=== PATIENT | female | born 1970 | race Caucasian/White ===

== ENCOUNTER 2019-04-21 16:44 | Emergency (ER) | payer OTHER, SELFPAY ==
--- NOTE | ~2019-04-21 | XR_ITS ---
XR lumbar spine 2-3V 04/21/2019 17:56 Indication: Low back pain Procedure: 3 views lumbar spine Comparison: 11/25/2017 Findings: There is grade 1 spondylolisthesis at L5-S1 secondary to bilateral pars interarticularis de fects. Mild disc narrowing at L4-5 and L5-S1. Mild atherosclerosis of the aorta. No acute fracture or traumatic malalignment. Sacral foramen are symmetric. Impression: 1: Mild lumbar spondylosis with grade 1 spondylolisthesis at L5-S1 secondary to spondylolysis. Reviewed, dictated and finalized at location A. HEALTH CARE SOCIAL WORKER Impression: 1: Mild lumbar spondylosis with grade 1 spondylolisthesis at L5-S1 secondary to spondylolysis.
[2019-04-21 16:48] VITALS: BP 154/76; PULSE 104; RESP 20; TEMP 36.6; O2SAT 100
--- NOTE | 2019-04-21 17:45 | ED.BACK ---
HPI - Back Pain/Injury General Chief Complaint: Back Pain/Injury Stated Complaint: BACK PAIN Time Seen by Provider: 04/21/19 17:17 Source: patient Mode of arrival: ambulatory Limitations: no limitations History of Present Illness HPI Narrative: This is a 48 year old female that presents to the ER for low back pain since this morning. Reports she stood up from her couch quicky and felt a pull in her back. Reports since she has had low back pain. Reports she has been taking anti-inflammatories with little relief. Denies saddle anesthesia, weakness, or bowel/bladder incontinence. Related Data Allergies Allergy/AdvReac Type Severity Reaction Status Date / Time Sulfa (Sulfonamide Allergy Unknown Verified 04/21/19 17:12 Antibiotics) Review of Systems Review of Systems: Narrative: CONSTITUTIONAL: Denies fever MUSCULOSKELETAL: Reports back pain, joint pain, and myalgia. NEUROLOGIC: Denies numbness, or weakness. All systems reviewed & are unremarkable except as noted in HPI and below PMFSH Past Medical History Medical History (Updated 04/21/19 @ 18:22 by Marine Horton PA-C) History of breast cancer Surgical History Surgical History (Updated 04/21/19 @ 17:46 by Marine Horton PA-C) History of lumpectomy Social History Social History (Updated 04/21/19 @ 17:46 by Marine Horton PA-C) Smoking status: Current every day smoker Tobacco type: e-cigarettes Gender identity (if verbalized by the patient): Female Exam Narrative: Exam Narrative: GENERAL: Well-appearing, well-nourished, and in no acute distress. HEAD: Normocephalic, atraumatic. EYES: EOMI. CHEST: Clear to auscultation. No respiratory distress. No wheezes rales or rhonchi HEART: Regular rate and rhythm. No murmur heard. Normal peripheral pulses. BACK: No midline spinal tenderness EXTREMITIES: Normal range of motion. No edema. Strength equal bilateral lower extremities (5/5). Normal patellar reflexes bilaterally SKIN: Warm, dry, no rash. NEURO: No focal deficits. Alert and oriented x3. PSYCH: Normal mood and affect Course Vital Signs Vital signs: Vital Signs Temperature 97.9 F 04/21/19 16:48 Pulse Rate 104 H 04/21/19 16:48 Respiratory Rate 04/21/19 16:48 Blood Pressure 154/76 H 04/21/19 16:48 Pulse Oximetry 100 04/21/19 16:48 Temperature 97.9 F 04/21/19 16:48 Pulse Rate 104 H 04/21/19 16:48 Respiratory Rate 04/21/19 16:48 Blood Pressure 154/76 H 04/21/19 16:48 Pulse Oximetry 100 04/21/19 16:48 MDM - Back Pain/Injury MDM Narrative Medical decision making narrative: Patient presents to the emergency department for low back pain since this morning. She is neurologically intact. No midline spinal tenderness. Lumbar spine x-rays without acute changes. Patient was instructed on care of muscle strain. She is to follow-up with primary care doctor. She is given warnings to return to the ER Imaging Data Radiologist's impression: ITS Impressions Lumbar Spine X-Ray 04/21/19 18:01 Impression: 1: Mild lumbar spondylosis with grade 1 spondylolisthesis at L5-S1 secondary to spondylolysis. Critical Care Time Critical Care Time Critical Care Time: No Discharge Plan Discharge Clinical Impression: Strain of lumbar region Qualifiers: Encounter type: initial encounter Qualified Code(s): S39.012A - Strain of muscle, fascia and tendon of lower back, initial encounter Patient Disposition: Home, Self-Care Condition: Stable Instructions: Muscle Strain (ED) Additional Instructions: Return to the ER if you experience weakness, numbness, bowel/bladder incontinence, or any other symptoms that are concerning to you Rest, use ice/heat, take anti-inflammatories (Aleve, Ibuprofen, Naproxen, etc) or Tylenol as needed for pain as well as muscle relaxer (Diazepam) as needed for pain. Muscle relaxers can make you drowsy, do not drive if you take this Follow up with your primary care doctor
[2019-04-21] MEDS: ACETAMINOPHEN 500 MG TABLET 1000 MG PO (18:12)
== END 2019-04-21 18:50 | disposition home or self-care (01) ==
PROVIDERS: Emergency Provider Emergency Medicine
DX: S39.012A Strain of muscle, fascia and tendon of lower back, initial encounter (principal); Z85.3 Personal history of malignant neoplasm of breast; F17.290 Nicotine dependence, other tobacco product, uncomplicated; M47.816 Spondylosis without myelopathy or radiculopathy, lumbar region; M43.07 Spondylolysis, lumbosacral region; X50.9XXA Other and unspecified overexertion or strenuous movements or postures, initial encounter
CPT/HCPCS: 72100; 96372; 99283; A9270; J3360

== ENCOUNTER 2021-03-29 14:13 | Outpatient (CLI) | payer OTHER, SELFPAY ==
--- NOTE | ~2021-03-29 | US_ITS ---
EXAMINATION: US axilla RT HISTORY: Patient with history of right mastectomy and right axillary lymph node dissection presents w ith palpable lump of the right axilla. TECHNIQUE: Targeted high-resolution right breast ultrasound was performed. FINDINGS: There is a 1.3 x 1.5 x 1.1 cm oval, circumscribed, parallel, hypoechoic mass with posterior acoustic enhancement and no internal vascularity in the right axilla in the area of the palpable abn ormality. IMPRESSION: Indeterminate mass of the right axilla corresponding to the palpable abnormality of concern. Ultrasou nd-guided biopsy is recommended. BI-RADS category 4, suspicious findings. Reviewed, dictated and finalized at location A. ORDER DELIVERY RUNNER IMPRESSION: Indeterminate mass of the right axilla corresponding to the palpable abnormalit y of concern. Ultrasound-guided biopsy is recommended. BI-RADS category 4, suspicious findings.
== END 2021-03-29 14:14 | disposition home or self-care (01) ==
PROVIDERS: PCP Physician Assistant; Visit Provider Radiology Radiation Oncology
DX: N63.31 Unspecified lump in axillary tail of the right breast (principal)
CPT/HCPCS: 76882

== ENCOUNTER 2021-04-11 12:54 | Outpatient (CLI) | payer OTHER, SELFPAY ==
--- NOTE | ~2021-04-11 | US_ITS ---
EXAMINATION: US biopsy lymph node DATE: 04/11/2021 14:28 INDICATION: TECHNIQUE: The procedure including the risks and benefits was discussed with the patient. Risks discu ssed included bleeding and infection. The patient understood the risks and agreed to proceed. The sk in overlying the right axilla was prepped and draped in usual sterile fashion. Anesthetic was admini stered with 1% lidocaine subcutaneously. An 18 gauge core biopsy needle was advanced under continuou s ultrasound observation to the lesion of interest. 3 core biopsy specimens were obtained. An 18-gau ge spinal needle was also passed into the lesion utilizing continuous ultrasound observation and 1 mL of maroon-colored fluid was aspirated. The aspirated fluid along with the core needle biopsy specime ns were both sent to lab for pathology/cytology. The needle was removed and the entry site was clean ed and dressed. Post procedure ultrasound demonstrated no hemorrhage. FINDINGS: Ultrasound images demonstrate a 1.1 x 1 x 1 cm very hypoechoic lesion at the right axilla w hich is without definitive posterior acoustic shadowing, and initially concerning for solid nodule or lymph node. Biopsy yielded couple small fragments of soft tissue but less than anticipated. Followin g the second core biopsy the lesion appears slightly smaller and with flattening of the previously un iformly convex peripheral margins. These findings suggested at this could represent a cystic lesion. Approximately 1 mL of dark maroon-colored fluid was able to be aspirated from the lesion with further decrease in size and development of a more concave margin along one side of the lesion further sugge sting a cystic lesion. IMPRESSION: 1. Successful Ultrasound-guided biopsy and aspiration of a 1.1 cm right axillary lesion with features as detailed above favoring a cystic lesion such as a hematoma/seroma over a lymph node or other shani d nodule. Reviewed, dictated and finalized at location A. D SAW RUNNER IMPRESSION: 1. Successful Ultrasound-guided biopsy and aspiration of a 1.1 cm right axillar y lesion with features as detailed above favoring a cystic lesion such as a hem atoma/seroma over a lymph node or other solid nodule.
== END 2021-04-11 12:55 | disposition home or self-care (01) ==
LOC: ANHIMG 12:59
PROVIDERS: PCP Physician Assistant; Visit Provider Radiology Radiation Oncology
DX: C50.811 Malignant neoplasm of overlapping sites of right female breast (principal); N60.32 Fibrosclerosis of left breast; L72.0 Epidermal cyst
CPT/HCPCS: 38505; 76942; 88104; 88108; 88305

== ENCOUNTER 2021-11-07 09:58 | Emergency (ER) | payer OTHER, SELFPAY ==
--- NOTE | 2021-11-07 10:04 | ED.URI ---
HPI - URI/Sore Throat General Chief Complaint: Upper Respiratory Infection Stated Complaint: SORE THROAT/CONGESTION/BODY ACHES Time Seen by Provider: 11/07/21 10:04 Source: patient and RN notes reviewed History of Present Illness HPI Narrative: Patient is a 51-year-old female who presents the urgent care with her spouse and with complaints of sore throat, congestion and body aches. Patient states that her sore throat started on Thursday and the other 2 became ill yesterday. Patient denies of any fevers, nausea or vomiting. Denies any ill exposures. Patient states she is taking Niki-Oliver which has helped her symptoms some. No other acute complaints. No acute distress noted. Patient aware of the plan of care. Some parts of this dictation were generated by voice recognition software and may contain typographical and/or grammatical inaccuracies. Related Data Home Medications Medication Instructions Recorded Confirmed cholecalciferol (vitamin D3) 1,250 1,250 mcg PO WEEKLY 03/19/21 07/08/21 mcg (50,000 unit) capsule clobetasol 0.05 % topical cream 1 applic topical BID 03/19/21 07/08/21 cyanocobalamin (vitamin B-12) 1,000 mcg PO BID 03/19/21 07/08/21 1,000 mcg capsule docusate sodium 100 mg capsule 100 mg PO BID 03/19/21 07/08/21 levothyroxine 50 mcg tablet 50 mcg PO DAILY 03/19/21 07/08/21 multivit with minerals-iron 18 1 tablet PO DAILY 03/19/21 07/08/21 mg-folic ac 400 mcg-vit K 25 mcg tablet (Adults Multivitamin) oxycodone 5 mg tablet 5 mg PO Q4H PRN Pain 03/19/21 07/08/21 anastrozole 1 mg tablet 1 mg PO DAILY 07/08/21 07/08/21 Allergies Allergy/AdvReac Type Severity Reaction Status Date / Time Sulfa (Sulfonamide Allergy Unknown Verified 07/08/21 09:36 Antibiotics) Review of Systems Review of Systems: CONSTITUTIONAL: Denies fever, chills, or sweats. EYES: Denies visual changes, redness, or discharge. ENT: Reports of postnasal drainage, sore throat CARDIOVASCULAR: Denies chest pain, palpitations, or edema. RESPIRATORY: Denies cough or dyspnea. GASTROINTESTINAL: Denies abdominal pain, nausea, vomiting, or diarrhea. GENITOURINARY: Denies dysuria or hematuria. SKIN: Denies rash or itching. MUSCULOSKELETAL: Denies back pain, joint pain. Reports of some body aches NEUROLOGIC: Denies headache, numbness, or weakness. All other systems reviewed are negative, except as documented in HPI. [facility] Past Medical History Medical History (Updated 11/07/21 @ 10:41 by JHON Quigley) History of breast cancer Surgical History Surgical History (Updated 04/22/21 @ 09:46 by Amanda Ann Mai, MD) History of lumpectomy Social History Social History (Updated 04/21/19 @ 17:46 by Marine Horton PA-C) Smoking packs per day: 1.5 Smoking cigarettes per day: 30.0 Years smoked: 20 Smoking pack-years: 30.00 Smoking status: Former smoker Tobacco type: cigarettes Additional smoking assessment comments: vapping now Gender identity (if verbalized by the patient): Female Spiritual care concerns: No Comments At the time of my signature, I reviewed and agree with the nursing past medical, surgical, social, and family history. There is no relevant family history pertinent to the patient complaint. Exam Narrative: GENERAL: This is a well-nourished, well-developed patient, in no apparent distress. HEAD: normocephalic, atraumatic. EYES: PERRL. Sclera clear/white. Vision is grossly intact. EARS: External ears normal, auditory canals clear and without drainage, TMs normal without perforation. Hearing grossly intact. NOSE: External nose normal with no obvious nasal discharge, nares without redness, clear rhinorrhea. THROAT: Mucous membranes moist, posterior pharynx clear. Moderate clear postnasal drainage without exudate or ulceration NECK: Neck supple, non-tender without lymphadenopathy CARDIOVASCULAR: Regular rate and rhythm without murmurs, gallops, or rubs. RESPIRATORY: Clear to auscultatio
[2021-11-07 10:21] VITALS: BP 141/87; PULSE 102; RESP 16; TEMP 37.3; O2SAT 100
[2021-11-07 20:22] LABS: SARS-CoV-2 RNA PCR Positive
== END 2021-11-07 10:52 | disposition home or self-care (01) ==
PROVIDERS: Emergency Provider Nurse Practitioner Family; PCP Physician Assistant
DX: U07.1 COVID-19 (principal); Z85.3 Personal history of malignant neoplasm of breast; F17.200 Nicotine dependence, unspecified, uncomplicated
CPT/HCPCS: 87081; 87880; 99213; C9803; G0463; U0003; U0005

== ENCOUNTER 2021-11-12 20:16 | Emergency (ER) | payer OTHER, SELFPAY ==
[2021-11-12 20:43] VITALS: BP 176/96; PULSE 86; RESP 18; TEMP 36.4; O2SAT 99
[2021-11-12] MEDS: methocarbamoL 750 MG TABLET PO (22:44)
--- NOTE | 2021-11-12 22:44 | ED.BACK ---
HPI - Back Pain/Injury General Chief Complaint: Back Pain/Injury Stated Complaint: back pain Time Seen by Provider: 11/12/21 21:43 History of Present Illness HPI Narrative: Pt is a 51 y/o female, PMHx of chronic intermittent back pain, presents to ED via POV with low back pain, onset today after emptying her litter box at home. She notes pain has been localized to the low back since onset, non radiating, and not relieved with APAP, Aleve and heat applied today. Pain increases with movement, improves minimally with rest. She denies associated bowel or bladder incontinence, saddle anesthesia, fevers/trauma. She endorses hx of similar pain in the past that was alleviated with muscle relaxants, prompting her visit. Related Data Home Medications Medication Instructions Recorded Confirmed cholecalciferol (vitamin D3) 1,250 1,250 mcg PO WEEKLY 03/19/21 07/08/21 mcg (50,000 unit) capsule clobetasol 0.05 % topical cream 1 applic topical BID 03/19/21 07/08/21 cyanocobalamin (vitamin B-12) 1,000 mcg PO BID 03/19/21 07/08/21 1,000 mcg capsule docusate sodium 100 mg capsule 100 mg PO BID 03/19/21 07/08/21 levothyroxine 50 mcg tablet 50 mcg PO DAILY 03/19/21 07/08/21 multivit with minerals-iron 18 1 tablet PO DAILY 03/19/21 07/08/21 mg-folic ac 400 mcg-vit K 25 mcg tablet (Adults Multivitamin) oxycodone 5 mg tablet 5 mg PO Q4H PRN Pain 03/19/21 07/08/21 anastrozole 1 mg tablet 1 mg PO DAILY 07/08/21 07/08/21 Allergies Allergy/AdvReac Type Severity Reaction Status Date / Time Sulfa (Sulfonamide Allergy Unknown Verified 11/12/21 21:46 Antibiotics) Review of Systems Musculoskeletal: Comments: refer to HPI [facility] Past Medical History Medical History (Updated 11/12/21 @ 22:51 by JHON Minaya) History of breast cancer Surgical History Surgical History (Updated 04/22/21 @ 09:46 by Amanda Ann Mai, MD) History of lumpectomy Social History Social History (Updated 04/21/19 @ 17:46 by Marine Horton PA-C) Smoking packs per day: 1.5 Smoking cigarettes per day: 30.0 Years smoked: 20 Smoking pack-years: 30.00 Smoking status: Former smoker Tobacco type: cigarettes Additional smoking assessment comments: vapping now Gender identity (if verbalized by the patient): Female Spiritual care concerns: No Exam Const: General: healthy appearing, no acute distress and alert Orientation/consciousness: patient oriented x3 Limitations: no limitations HENMT: Head: normal to inspection General nose exam: Normal external nose present Eyes: Conjunctivae: conjunctivae normal Pupils: Equal, round and reactive pupils present EOM: EOMs intact bilaterally Direct Ophthalmoscopy: no photophobia Neck: Neck: normal visual inspection, no lymphadenopathy and no meningeal signs Chest: Chest palpation & inspection: normal inspection of the chest Resp: Effort & Inspection: normal respiratory effort Auscultation: clear to auscultation bilaterally Cardio: Rate: regular rate Rhythm: regular rhythm Back/Spine/Pelvis: Other: Pt is TTP over the SI joints bilaterally. No palpable spasm. NO C T or L spine point tenderness, no step offs Negative SLR bilaterally Normal sensation saddle region Skin: General skin exam: normal color Rashes: no rashes Neuro: General: patient oriented x3, moves all extremities, no meningeal signs, no focal motor deficits and CN's II-XI intact bilaterally Speech: normal speech Gait exam (Neuro): Normal gait present Course Vital Signs Vital signs: Vital Signs Temperature 36.4 C L 11/12/21 20:43 Pulse Rate 86 11/12/21 20:43 Respiratory Rate 18 11/12/21 20:43 Blood Pressure 176/96 H 11/12/21 20:43 Pulse Oximetry 99 11/12/21 20:43 Oxygen Delivery Room Air 11/12/21 20:43 Temperature 36.4 C L 11/12/21 20:43 Pulse Rate 86 11/12/21 20:43 Respiratory Rate 18 11/12/21 20:43 Blood Pressure 176/96 H 11/12/21 20:43 Pulse Oximetry 99 11/12/21 2
[2021-11-12 22:59] VITALS: BP 167/99; PULSE 87; RESP 16; O2SAT 99
== END 2021-11-12 22:58 | disposition home or self-care (01) ==
PROVIDERS: Emergency Provider Nurse Practitioner Family; PCP Physician Assistant
DX: S39.012A Strain of muscle, fascia and tendon of lower back, initial encounter (principal); Z85.3 Personal history of malignant neoplasm of breast; F17.290 Nicotine dependence, other tobacco product, uncomplicated; X50.9XXA Other and unspecified overexertion or strenuous movements or postures, initial encounter
CPT/HCPCS: 99283; A9270

== ENCOUNTER 2022-02-24 08:27 | Outpatient (CLI) | payer OTHER, SELFPAY ==
--- NOTE | ~2022-02-24 | US_ITS ---
US thyroid INDICATION: Thyroid goiter TECHNIQUE: Real-time sonographic images of the thyroid gland were obtained. COMPARISON: No prior studies for comparison. FINDINGS: The right thyroid lobe measures 4.1 x 1.2 x 1.7 cm. The left thyroid lobe measures 4.8 x 1 .3 x 1.8 cm. The thyroid gland is diffusely heterogeneous with multiple ill-defined masses. Dominant mass in the right lobe measures 1.3 x 6.8 x 0.8 cm. This mass is solid, isoechoic, wider than tall, i rregular margins without macrocalcifications, TR 4. Largest dominant mass in the left lobe measures 5 mm and is solid, hypoechoic, wider than tall, smoothly marginated without echogenic foci, TR 4. IMPRESSION: 1. Diffusely heterogeneous thyroid gland with multiple masses, compatible with multinodular goiter. No discrete mass meet sonographic criteria for biopsy. Reviewed, dictated and finalized at location A. OR CLERK
[2022-02-24 09:38] LABS: Alanine Aminotransferase 21 U/L (6-35); Albumin Level 4.5 g/dL (3.5-5.1); Alkaline Phosphatase 106 U/L (38-126); Anion Gap 9 mmol/L (8-16); Aspartate Amino Transferase 26 U/L (14-36); Bilirubin,Total 0.2 mg/dL (0.2-1.3); Blood Urea Nitrogen 20 mg/dL (7-17); Calcium 9.3 mg/dL (8.4-10.2); Carbon Dioxide 27 mmol/L (22-30); Chloride 106 mmol/L (98-107); Estimated Glomerular Filt Rate > 60; Glucose 117 mg/dL (65-110); Sodium 142 mmol/L (137-145)
[2022-02-24 10:42] LABS: Folic Acid 13.5 ng/mL (2.76->20)
[2022-02-27 02:10] LABS: Thyroid Peroxidase Antibodies 936 IU/mL (<9)
[2022-02-28 05:51] LABS: Triiodothyronine T3 Free 2.9 pg/mL (2.3-4.2)
== END 2022-02-24 08:28 | disposition home or self-care (01) ==
LOC: ANHIMG 08:30
PROVIDERS: PCP Physician Assistant; Visit Provider Nurse Practitioner
DX: E03.9 Hypothyroidism, unspecified (principal); E04.2 Nontoxic multinodular goiter
CPT/HCPCS: 36415; 76536; 80053; 82607; 82746; 84439; 84443; 84481; 86376

== ENCOUNTER 2022-05-08 09:55 | Outpatient (CLI) | payer OTHER, SELFPAY ==
[2022-05-08 10:39] LABS: Hemoglobin A1C 5.5 % (<5.7)
[2022-05-08 10:58] LABS: Alanine Aminotransferase 18 U/L (6-35); Albumin Level 4.5 g/dL (3.5-5.1); Alkaline Phosphatase 58 U/L (38-126); Anion Gap 7 mmol/L (8-16); Aspartate Amino Transferase 21 U/L (14-36); Bilirubin,Total 0.4 mg/dL (0.2-1.3); Blood Urea Nitrogen 13 mg/dL (7-17); Calcium 9.3 mg/dL (8.4-10.2); Carbon Dioxide 27 mmol/L (22-30); Chloride 105 mmol/L (98-107); Cholesterol 261 mg/dL (0-200); Estimated Glomerular Filt Rate > 60; Glucose 110 mg/dL (65-110); HDL Direct 49 mg/dL; Potassium 4.3 mmol/L (3.4-5.0); Sodium 139 mmol/L (137-145); Triglycerides 116 mg/dL (<150)
[2022-05-08 11:09] LABS: LDL Cholesterol Direct 136 mg/dL
[2022-05-08 11:14] LABS: Free T4 Free Thyroxine 0.97 ng/mL (0.78-2.19)
[2022-05-08 12:09] LABS: Folic Acid > 20.0 ng/mL (2.76->20)
[2022-05-11 04:02] LABS: Insulin Level Total 3.6 uIU/mL (<=19.6); Thyroid Peroxidase Antibodies 875 IU/mL (<9)
[2022-05-17 04:27] LABS: Triiodothyronine T3 Free 2.9 pg/mL (2.3-4.2)
== END 2022-05-08 09:56 | disposition home or self-care (01) ==
LOC: ANHLAB 09:57
PROVIDERS: PCP Family Medicine Adolescent Medicine; Visit Provider Nurse Practitioner
DX: E03.9 Hypothyroidism, unspecified (principal); R73.01 Impaired fasting glucose
CPT/HCPCS: 36415; 80053; 80061; 82607; 82746; 83036; 83525; 84439; 84443; 84481; 86376

== ENCOUNTER 2022-08-06 09:49 | Outpatient (CLI) | payer OTHER, SELFPAY ==
[2022-08-06 10:43] LABS: Cholesterol 151 mg/dL (0-200); HDL Direct 54 mg/dL; Triglycerides 62 mg/dL (<150)
[2022-08-06 10:54] LABS: LDL Cholesterol Direct 78 mg/dL
== END 2022-08-06 09:50 | disposition home or self-care (01) ==
LOC: ANHLAB 09:50
PROVIDERS: PCP Family Medicine Adolescent Medicine; Visit Provider Family Medicine Adolescent Medicine
DX: E78.00 Pure hypercholesterolemia, unspecified (principal)
CPT/HCPCS: 36415; 80061

== ENCOUNTER 2022-12-29 09:31 | Outpatient (CLI) | payer OTHER, SELFPAY ==
--- NOTE | ~2022-12-29 | XR_ITS ---
EXAMINATION: XR wrist RT 2V DATE: 12/29/2022 09:41 INDICATION: Right wrist pain. TECHNIQUE: 2 views of right wrist were obtained. COMPARISON: None. FINDINGS: Bone alignment is normal. No fracture. There is mild osteoarthritis of triscaphe joint and first carpometacarpal joint. IMPRESSION: 1. Mild polyarticular osteoarthritis. Reviewed, dictated and finalized at location A.
== END 2022-12-29 09:32 | disposition home or self-care (01) ==
LOC: ANHIMG 09:35
PROVIDERS: PCP Family Medicine Adolescent Medicine; Visit Provider Family Medicine Adolescent Medicine
DX: M25.531 Pain in right wrist (principal); M15.9 Polyosteoarthritis, unspecified
CPT/HCPCS: 73100

== ENCOUNTER 2023-07-23 10:09 | Outpatient (CLI) | payer OTHER, SELFPAY ==
[2023-07-23 10:42] LABS: Alanine Aminotransferase 34 U/L (6-35); Albumin Level 4.6 g/dL (3.5-5.1); Alkaline Phosphatase 77 U/L (38-126); Anion Gap 6 mmol/L (4-12); Aspartate Amino Transferase 29 U/L (14-36); Bilirubin,Total 0.4 mg/dL (0.2-1.3); Blood Urea Nitrogen 19 mg/dL (7-17); Calcium 9.5 mg/dL (8.4-10.2); Carbon Dioxide 27 mmol/L (22-30); Chloride 106 mmol/L (98-107); Cholesterol 147 mg/dL (0-200); Estimated Glomerular Filt Rate > 60; Glucose 107 mg/dL (65-110); HDL Direct 59 mg/dL; Potassium 4.4 mmol/L (3.4-5.0); Sodium 139 mmol/L (137-145); Triglycerides 69 mg/dL (<150)
[2023-07-23 10:53] LABS: LDL Cholesterol Direct 76 mg/dL
== END 2023-07-23 10:10 | disposition home or self-care (01) ==
LOC: ANHLAB 10:10
PROVIDERS: PCP Family Medicine Adolescent Medicine; Visit Provider Family Medicine Adolescent Medicine
DX: E03.9 Hypothyroidism, unspecified (principal); R25.2 Cramp and spasm; I10 Essential (primary) hypertension; E78.00 Pure hypercholesterolemia, unspecified
CPT/HCPCS: 36415; 80053; 80061; 83735; 84443

== ENCOUNTER 2023-12-12 17:36 | Emergency (ER) | payer OTHER, SELFPAY ==
--- NOTE | ~2023-12-12 | CT_ITS ---
EXAMINATION: CT lumbar spine wo con DATE: 12/12/2023 21:19 INDICATION: Back pain TECHNIQUE: Computed tomography (CT) of the lumbar spine was performed without intravenous contrast. A utomated exposure control and iterative reconstruction technique were employed. Exam dose: 514.19 mG y-cm total exam DLP. Lumbar spine COMPARISON: 04/21/2019 lumbar spine FINDINGS: There are bilateral L5 pars interarticularis defects with associated grade 1 anterolisthesi s at L5-S1. Otherwise no fracture or bone destruction is detected. Moderate loss of interspace height at L4-5 and L5-S1. No central or lateral recess stenosis is noted. Mild posterior disc bulging at L3-4 and to a greater extent L4-5 and L5-S1. The sacroiliac joints are intact. Incidental finding of 6.4 x 8.5 cm left pelvic cystic mass with thin wall. Attenuation measures avera ge 10 Hounsfield units. There is abdominal aortic and iliac arterial calcification but no aneurysm. Pinpoint nonobstructing lower pole left renal calculus. IMPRESSION: 6.4 x 0.5 cm left pelvic cystic mass, likely of ovarian origin Bilateral L5 pars interarticularis defects with associated grade 1 anterolisthesis at L5-S1 Mild posterior disc bulging at L3-4 and moderately prominent posterior disc bulging at L4-5 and L5-S1 Moderate loss of height of L4-5 and L5-S1 discs Reviewed, dictated and finalized at Location A. Reviewed, dictated and finalized at location A. IMPRESSION: 6.4 x 0.5 cm left pelvic cystic mass, likely of ovarian origin Bilateral L5 pars interarticularis defects with associated grade 1 anterolisthe sis at L5-S1 Mild posterior disc bulging at L3-4 and moderately prominent posterior disc bul ging at L4-5 and L5-S1 Moderate loss of height of L4-5 and L5-S1 discs
[2023-12-12] MEDS: methylPREDNISolone SOD SUCC 125 MG VIAL IM (20:32)
[2023-12-12] MEDS: KETOROLAC (*BKC) 60 MG/2 ML VIAL IM (20:32)
--- NOTE | 2023-12-12 21:12 | ED.BACK ---
HPI - Back Pain/Injury General Chief Complaint: Back Pain/Injury Stated Complaint: back pain Time Seen by Provider: 12/12/23 19:51 History of Present Illness HPI Narrative: Patient is a 53-year-old female who presents to the ER with acute back pain. She reports 12 days ago she injured her back on her right lower side. The injury started healing but today, when patient bent over, the pain resumed and is unmanageable. She has a medical history of breast cancer. Patient has no complaints of chest pain, shortness a breath, urinary symptoms. Related Data Home Medications Medication Instructions Recorded Confirmed multivit with minerals-iron 18 1 tablet PO DAILY 03/19/21 09/04/23 mg-folic ac 400 mcg-vit K 25 mcg tablet (Adults Multivitamin) anastrozole 1 mg tablet 1 mg PO DAILY 07/08/21 09/04/23 goserelin 3.6 mg subcutaneous 3.6 mg subcut MONTHLY 01/07/22 09/04/23 implant zoledronic acid 4 mg intravenous mg IV .every 6 months 07/30/22 07/22/23 solution vitamin D3 125 mcg (5,000 1 tablet PO DAILY 07/22/23 09/04/23 unit)-folic acid 1 mg tablet Allergies Allergy/AdvReac Type Severity Reaction Status Date / Time Sulfa (Sulfonamide Allergy Unknown Verified 09/04/23 10:21 Antibiotics) Review of Systems Review of Systems: All systems reviewed & are unremarkable except as noted in HPI and below PMFSH Past Medical History Medical History History of breast cancer Surgical History Surgical History History of lumpectomy (2012) left History of right mastectomy (01/2021) History of tubal ligation (2010) Family History Family History Father Lymphoma Mother Hodgkins lymphoma Other Pancreatic cancer Social History Social History Smoking packs per day: 1.5 Smoking cigarettes per day: 30.0 Years smoked: 20 Smoking pack-years: 30.00 Smoking status: Former smoker Tobacco type: cigarettes Additional smoking assessment comments: vapping now Gender identity (if verbalized by the patient): Female Spiritual care concerns: No Exam Narrative: GENERAL: Well appearing, well-nourished, non-toxic, in no acute distress. NECK: Supple. No adenopathy, no masses. RESPIRATORY: Airway patent, respirations nonlabored. Clear to auscultation bilaterally, no rales, rhonchi, wheezing. CARDIOVASCULAR: Regular rate and rhythm without murmurs, rubs, or gallops. Peripheral pulses 2+ and equal bilaterally. ABDOMINAL: Soft, nontender, nondistended, no hepatosplenomegaly. Normoactive BS. MUSCULOSKELETAL: Moves all extremities. Strength/ROM intact without gross deformities. SKIN: Warm, dry, normal color. No rashes. NEURO: A&O X3. Speech clear. Cranial nerves II-XII grossly intact. No ataxic movements. MDM - Back Pain/Injury MDM Narrative Medical decision making narrative: Patient is a 53-year-old female who presents to the ER with acute back pain. She reports 12 days ago she injured her back on her right lower side. The injury started healing but today, when patient bent over, the pain resumed and is unmanageable. She has a medical history of breast cancer. Patient has no complaints of chest pain, shortness a breath, urinary symptoms. Pt's physical examination is unremarkable. Her lumbar CT scan showed There are bilateral L5 pars interarticularis defects with associated grade 1 anterolisthesis at L5-S1. Otherwise no fracture or bone destruction is detected. Moderate loss of interspace height at L4-5 and L5-S1. No central or lateral recess stenosis is noted. Mild posterior disc bulging at L3-4 and to a greater extent L4-5 and L5-S1. The sacroiliac joints are intact. Incidental finding of 6.4 x 8.5 cm left pelvic cystic mass with thin wall. Attenuation measures a
[2023-12-12 23:26] VITALS: BP 138/75; PULSE 78; RESP 16; TEMP 36.9; O2SAT 98
== END 2023-12-12 23:27 | disposition home or self-care (01) ==
PROVIDERS: Emergency Provider Registered Nurse; PCP Family Medicine Adolescent Medicine
DX: M51.36 Other intervertebral disc degeneration, lumbar region (principal); F17.290 Nicotine dependence, other tobacco product, uncomplicated; Z85.3 Personal history of malignant neoplasm of breast; Z90.11 Acquired absence of right breast and nipple; N94.89 Other specified conditions associated with female genital organs and menstrual cycle
CPT/HCPCS: 72131; 96372; 99284; J1885; J2919

== ENCOUNTER 2024-08-02 10:19 | Outpatient (CLI) | payer OTHER, SELFPAY ==
--- OUTSIDE RECORDS SUMMARY | 2024-08-02 10:37 | XMS_ITS | Encounter Summary ---
Author Organization [facility] Address [address] [place] [address] Phone Care Team Providers Care Clinical Data Management Director Name Role Phone Ottoniel Hernandez MD Unavailable [phone] Fariha Shin MD Unavailable + [phone] Manuel Nevarez MD Primary Care Prov ider Edith Langley MD PhD Unavailable [phone] Encounter Details Date Type Department Care Team (Late st Contact Info) Description 04/01/2024 Telephone [facility] Floor [address] [place] [address] Cathleen Bolaños, A Social History Tobacco Use Types Packs/Day Years Used Date Smoking Tobacco: Former Cigarettes Q uit: 2011 Smokeless Tobacco: Never AUDIT-C Answer Date Recorded Q1: How often do you have a drink containing alc ohol? Monthly or less 01/22/2021 Q2: How many drinks containi ng alcohol do you have on a typical day when you are drinking? 1 or 2 01/22/2021 Q3: How often do you have si x or more drinks on one occasion? Never 01/22/2021 Hunger Vital Sign Answer Date Recorded Within the past 12 months, y ou worried that your food would run out before you got the money to buy more. Patient declined Within the past 12 months, t he food you bought just didn't last and you didn't have money to get more. 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 Gender Identity Not on file Sexual Orientation Not on file documented as of this encounter Plan of Treatment Not on file documented as of this encounter Visit Diagnoses Not on filedocumented in this encounter Care Teams Clinical Data Management Director Relationship Specialty Start Date End Date Manuel Nevarez MD [address] [place] [address] PCP - General Family Medicine 03/28/22 Ottoniel Hernandez MD Referring Physician Obstetrics and Gynecology 11/07/20 Fariha Shin MD [address] [facility] [address] [place] [address] Medical Oncologist/Conservation Technician Medical Oncology 07/29/21 Edith Langley MD PhD [address] [facility] [address] DIV [place] [address] Consulting Physician Medical Oncology 02/24/24 documented as of this encounter
--- OUTSIDE RECORDS SUMMARY | 2024-08-02 10:37 | XMS_ITS | Encounter Summary ---
Author Organization [facility] Address [address] [place] [address] Phone Care Team Providers Care Lead Software Developer Name Role Phone Ottoniel Hernandez MD Unavailable Fariha Shin MD Unavailable [phone]- [phone] Manuel Nevarez MD Primary Care Prov ider Edith Langley MD PhD Unavailable [phone] Encounter Details Date Type Department Care Team (Latest Contact Info) Description 01/09/2024 Orders Only [facility] Scanning, Provider Social History Tobacco Use Types Packs/Day Years Used Date Smoking Tobacco: Former Cigarettes Q uit: 2010 Smokeless Tobacco: Never AUDIT-C Answer Date Recorded [...] you got the money to buy more. Never true 11/27/19 24 Within the past 12 months, t he food you bought just didn't last and you didn't have money to get more. 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 Gender Identity Not on file Sexual Orientation Not on file documented as of this encounter Plan of Treatment Not on file documented as of this encounter Procedures Procedure Name Priority Date/Time Associated Diagnosis Comments SCAN - LABS 01/09/2024 documented in this encounter Results * SCAN - LABS (01/09/2024) us Provider Scanning Final Result documented in this encounter Visit Diagnoses Not on filedocumented in this encounter Care Teams Lead Software Developer Relationship Specialty Start Date End Date Manuel Nevarez MD [address] [place] [address] PCP - General Family Medicine 03/28/22 Ottoniel Hernandez MD Referring Physician Obstetrics and Gynecology 11/07/20 Fariha Shin MD [address] [facility] [address] [place] [address] Medical Oncologist/Calender Machine Operator Medical Oncology 07/29/21 Edith Langley MD PhD [address] [facility] [address] DIV IM [place] [address] Consulting Physician Medical Oncology 02/24/24 documented as of this encounter
--- OUTSIDE RECORDS SUMMARY | 2024-08-02 10:37 | XMS_ITS | Clinical Summary ---
Author Organization [facility] Address [facility] [place] [address] Care Team Providers Care Rounding Machine Operator Name Role Phone Ottoniel Hernandez MD Unavailable [phone] Fariha Shin MD Unavailable [phone] Manuel Nevarez MD Primary Care Prov ider Edith Langley MD PhD Unavailable Allergies Active Allergy Reactions Criticality Noted Date Comments Sulfa (Sulfonamide Antibiotics) Nausea & Vomiting,Vomiting Low 02/18/2021 Sulfanilamide Nausea & Vomiting Low Medications multivitamin tabletIndications: Vitamin Deficiency Prevention Take 1 tablet by mouth with lunch 11/10/19 21 Active clobetasoL (TEMOVATE) 0.05 % creamIndications:P laque Psoriasis Apply 1 application topically 2 (two) times a day Active goserelin acetate (ZOLADEX SUBQ)Indications:b reast cancer Inject under the skin every 30 (thirty) days Last dose was 04/05/2024, Patient will no longer take this after 05/17 surgery Active losartan (COZAAR) 100 mg tabletIndications: hypertension Take 1 tablet (100 mg total) by mouth every morning 03/05/20 22 Active atorvastatin (LIPITOR) 20 mg tabletIndications: hyperlipidemia Take 1 tablet (20 mg total) by mouth daily with dinner 05/08/19 23 Active levothyroxine (SYNTHROID) 75 mcg tabletIndications: hypothyroidism Take 1 tablet (75 mcg total) by mouth site engineer before breakfast 04/16/19 25 Active zoledronic acid (ZOMETA) 4 mg/5 mL injectionIndicatio ns: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,R/t Breast cancer treatment Infuse into a venous catheter every 6 (six) months Next Dose July 15, 2024 Active cholecalciferol (VITAMIN D-3) 5,000 unit tabletIndications: Prevention of Vitamin D Deficiency,bone loss prevention Take 1 tablet (5,000 Units total) by mouth every evening Active senna (SENOKOT) 8.6 mg tabletIndications: constipation Take 1 tablet by mouth daily as needed for constipation Active ibuprofen (ADVIL,MOTRIN) 600 mg tablet Take 1 tablet (600 mg total) by mouth every 6 (six) hours as needed for pain 60 tablet 05/17/19 25 Active acetaminophen (TYLENOL) 500 mg tablet Take 2 tablets (1,000 mg total) by mouth every 6 (six) hours as needed for pain 60 tablet 05/17/19 25 Active ondansetron ODT (ZOFRAN-ODT) 4 mg disintegrating tablet Take 1 tablet (4 mg total) by mouth every 8 (eight) hours as needed for nausea or vomiting 10 tablet 05/17/19 25 Active polyethylene glycol (MIRALAX) 17 gram/dose bulk powder Take 17 g by mouth daily 510 g 05/17/19 25 Active oxyCODONE (ROXICODONE) 5 mg immediate release tabletIndications: Pain Take 1 tablet (5 mg total) by mouth every 4 (four) hours as needed for pain 15 tablet 05/17/19 25 Active anastrozole (ARIMIDEX) 1 mg tabletIndications: Early Breast Cancer HR Positive and Postmenopausal Take 1 tablet (1 mg total) by mouth every morning 90 tablet 3 06/01/19 [address] (VOLTAREN) 75 mg EC tablet 06/01/19 25 Active Active Problems Problem Noted Date Diagnosed Date skilled nursing (current) use of aromatase inhibitors 05/24/2024 RAD51C gene mutation positive 02/17/2024 Overview (04/13/2024): - Pelvic US 03/18: ORADS 3 lesion, left-sided, 10 cm in larges dimension. EMT 8.8 mm - CA-125 normal 02/16 Plan: - Discussed imaging findings with normal CA125 suggest mass is benign, however, final diagnosis will be pending pathology - Discussed recommendation for risk-reducing BSO given 6.7% lifetime risk of ovarian cancer, with added benefit of hormone reduction given breast cancer history. Anticipate adhesions given BTL history. - No indication for hysterectomy or endometrial sampling given no PMB and EMT <11mm. No increased risk of endometrial cancer with RAD51 mutation - Consented for A, [facility] B[facility]. Blood consent signed. For case scheduling. History of bilateral breast cancer 07/29/2021 Malignant neoplasm of overla pping sites of right breast in female, estrogen receptor positive 02/16/2021 Cancer Staging:Pathologic stage from 02/16/2021:Stage IB(pT3, pN1mi, cM0, G2, ER+, CO+, HER2-) - Signed by Jasmin Hollingsworth MD PhD on 02/16/2021 Abnormal mammography 11/22/2020 Malignant neoplasm of overla pping sites of left breast in female, estrogen receptor positive 12/27/2012 Cancer Staging:Pathologic: Unsigned Encounters Date Type Department Care Team Description 07/15/2024 1:30 PM CDT Infusion [facility] - Infusion [address] [facility] [address] [place] [address] Malignant neoplasm of overlapping sites of right breast in female, estrogen receptor positive (HCC) (Primary Dx); Malignant neoplasm of overlapping sites of left breast in female, estrogen receptor positive (HCC) 07/15/2024 12:00 PM CDT Lab [facility] - Lab Collection [facility] [address] [place] [address] Malignant neoplasm of overlapping sites of left breast in female, estrogen receptor positive (HCC) 07/15/2024 Orders Only [facility] [address] [place] [address] Floor 8 [place] [address] Gricel Domingo, RN Malignant neoplasm of overlapping sites of right breast in female, estrogen receptor positive (HCC) (Primary Dx); skilled nursing (current) use of aromatase inhibitors 06/03/2024 8:15 AM CDT Office Visit [facility] [address] [place] [address] 8 [place] [address] Fariha Shin MD Malignant neoplasm of overlapping sites of left breast in female, estrogen receptor positive (HCC) (Primary Dx); skilled nursing (current) use of aromatase inhibitors 06/03/2024 Orders Only [facility] [address] [facility] [address] [place] [address] Gricel Domingo, RN 05/24/2024 Orders Only [facility] [address] [facility] Floor [address] [place] [address] Gricel Domingo RN 05/23/2024 Results Follow-Up [facility] Obstetrics and Gynecology [address] [facility] 13th [place] [address] [place] [address] Ottoniel Henrandez MD PhD 05/17/2024 10:14 AM UNIFORM ROOM ATTENDANT Anesthesia Event [facility] Operating Room [address] [place] [address] Yosef Bojorquez MD Montgomery, Andrea J., NP 05/17/2024 10:05 AM UNIFORM ROOM ATTENDANT - 05/17/2024 11:55 AM UNIFORM ROOM ATTENDANT Surgery [facility] Operating Room [address] [place] [address] Deb Rodriguez MD LAPAROSCOPIC SALPINGO-OOPHORECTOM Y 05/17/2024 7:23 AM UNIFORM ROOM ATTENDANT - 05/17/2024 2:24 PM UNIFORM ROOM ATTENDANT Hospital Encounter [facility] Operating Room [address] [place] [address] Deb Rodriguez MD RAD51C gene mutation positive Discharge Disposition: Discharge to home or self care 05/16/2024 Telephone [facility] Obstetrics and Gynecology [address] [facility] [address]th [place] [address] [place] [address] Varela, Niru Surgery Confirmation from Last 3 Months Immunizations Immunization Administration Dates Next Due Influenza, Quadrivalent, Split, Intramuscular Influenza, Trivalent, IM (MDV) 12/30/2020 Influenza, Unspecified 09/07/2013 Moderna SARS-CoV-2 Monovalent Vaccination (12+ Y RS) 12/30/2020 Pfizer SARS-CoV-2 Monovalent Vaccination (12+ Yrs) PURPLE 12/30/2001 Pfizer Sars-Cov-2 Bivalent Vaccination (12+ YRS) 02/21/2022 Surgical History Surgery Date Site/Laterality Comments TUBAL LIGATION 03/23/2010 - 03/22/2011 Bilateral tubal ligation BREAST LUMPECTOMY 03/23/2012 - 03/22/2013 Left BREAST BIOPSY 11/27/2020 Right CATARACT EXTRACTION, BILATERAL 03/23/2016 - 03/22/2017 Bilateral MASTECTOMY 01/22/2021 Right Medical History Medical History Date Comments Hx Other Medical Hypoglycemia Thyroid condition Arthritis PONV (postoperative nausea and vomiting) Breast cancer (HCC) Family History Medical History Relation Name Comments anaplastic t cell lymphoma Father Lymphoma Mother Prostate cancer Other 1 paternal uncle Family his tory of Cancer -; Diabetes type II Other 2 Family hist ory of Diabetes -Type 2; Hypertension Other 3 Family history of Hypertension; Seizures Other 4 Family history of Seizure disorder; Anesthesia problems Neg Hx Relation Name Status Comments Father Mother Other 1 paternal uncle Other 2 Other 3 Other 4 Social History Tobacco Use Types Packs/Day Years Used Date Smoking Tobacco: Former Cigarettes 2010 Passive Smoke Exposure: Past Smokeless Tobacco: Never Tobacco Cessation:Counseling Given: Not Answered AUDIT-C Answer Date Recorded Q1: How often do you have a drink containing alcohol? Never 04/22/2024 Q2: How many drinks containi ng alcohol do you have on a typical day when you are drinking? Patient does not drink Q3: How often do you have si x or more drinks on one occasion? Never 04/22/2024 Hunger Vital Sign Answer Date Recorded Within the past 12 months, y ou worried that your food would run out before you got the money to buy more. Patient declined Within the past 12 months, t he food you bought just didn't last and you didn't have money to get more. Patient declined Personal Safety Answer Date Recorded Have you ever been in or are you currently in a harmful physical or emotional relationship or is someone making you feel afraid or unsafe? Denies 05/17/2024 Comments No Sex and Gender Information Value Date Recorded Sex Assigned at Not on file Legal Sex Female 2:25 AM UNIFORM ROOM ATTENDANT Gender Identity Not on file Sexual Orientation Not on file Obstetrics History Last Filed Vital Signs Vital Sign Reading Time Taken Comments Blood Pressure 123/76 07/15/2024 12:14 PM CDT Pulse 73 07/15/2024 12:14 PM CDT Temperature 36.8 C (98.2 F) 07/15/2024 12:14 PM CDT Respiratory Rate 16 07/15/2024 12:14 PM CDT Oxygen Saturation 98% 07/15/2024 12:14 PM CDT Inhaled Oxygen Concentration - - Weight 52 kg (114 lb 10.2 oz) 07/15/2024 12:14 P M CDT Height 162.6 cm (5' 4 ) 04/22/2024 3:50 PM UNIFORM ROOM ATTENDANT Body Mass Index 19.68 04/22/2024 3:50 PM UNIFORM ROOM ATTENDANT Plan of Treatment Health Maintenance Due Date Last Done Comments Colon Cancer Screening-Colonoscopy 1970 Depression Screening 1970 Hepatitis C Screening 1970 DTaP/Tdap/Td Vaccine (1 - Tdap) 09/26/1983 Hepatitis B Screening 1990 Pneumococcal vaccine <65 (1 of 2 - PCV) 09/26/1991 Zoster Vaccine (1 of 2) 09/26/1991 Lung Cancer Screening 2022 Cervical Cancer Screening 10/14/2023 10/13/2022, Covid-19 Vaccine (2023-2 5 season) 2023 02/21/2022, 12/30/2020, 06/07/2020, Additional history exists Influenza Vaccine (Season Ended) 2024 12/30/2020, 12/30/2020, 09/07/2013 Regular Well Visit/Exam 18-64 11/26/2024 11/27/2023, 10/13/2022 Breast Cancer Screening-Mammogram 12/13/2024 12/14/2023, 12/08/2022, 12/02/2021, Additional history exists Procedures Procedure Name Priority Date/Time Associated Diagnosis Comments EGFR Routine 07/15/2024 11:56 AM CDT Malignant neoplasm of overlapping sites of left breast in female, estrogen receptor positive (HCC) BASIC METABOLIC PANEL Routine 07/15/2024 11:56 AM CDT Malignant neoplasm of overlapping sites of left breast in female, estrogen receptor positive (HCC) PHOSPHORUS Routine 07/15/2024 11:56 AM CDT Malignant neoplasm of overlapping sites of left breast in female, estrogen receptor positive (HCC) VITAMIN D 25 HYDROXY Routine 07/15/2024 11:56 AM CDT Malignant neoplasm of overlapping sites of left breast in female, estrogen receptor positive (HCC) SURGICAL PATHOLOGY Routine 05/17/2024 11 :13 AM UNIFORM ROOM ATTENDANT RAD51C gene mutation positive CYTOLOGY Routine 05/17/2024 10:50 AM UNIFORM ROOM ATTENDANT RAD51C gene mutation positive CO AN PROCEDURE PLACEHOLDER Routine 05/17/2024 10:40 AM UNIFORM ROOM ATTENDANT CO AN ELECTIVE ENDOTRACHEAL AIRWAY Routine 05/17/2024 10:40 AM UNIFORM ROOM ATTENDANT LAPAROSCOPIC SALPINGO-OOPHORECTO MY 05/17/2024 10:18 AM UNIFORM ROOM ATTENDANT RAD51C gene mutation positive POCT HCG, URINE Routine 05/17/2024 8:25 AM UNIFORM ROOM ATTENDANT SCREENING MAMMOGRAM LEFT W JORGE UNILATERAL ONLY Schedule Routine, Read Routine (OP Routine) 12/14/2023 9:36 AM CDT Malignant neoplasm of overlapping sites of left breast in female, estrogen receptor positive (HCC) Malignant neoplasm of overlapping sites of right breast in female, estrogen receptor positive (HCC) History of bilateral breast cancer History of partial mastectomy of left breast History of mastectomy, right Malignant neoplasm of upper-outer quadrant of right breast in female, estrogen receptor positive (HCC) Malignant neoplasm of right breast in female, estrogen receptor positive, unspecified site of breast (HCC) PAP AND HIGH RISK HPV, REFLEX TO GENOTYPING Routine 10/13/2022 11:15 AM CDT Healthcare maintenance from Last 3 Months or Most Recently Relevant to Health Maintenance Results * eGFR (07/15/2024 11:56 AM CDT) eGFR >90 >=60 mL/min/1. 73 m2 Comment: Interpretive Data Reference Interval Normal >/= 90 mL/min/1.73m2 Mildly decreased* 60 - 89 mL/min/1.73m2 Mildly to moderately decreased 45 - 59 mL/min/1.73m2 Moderately to severely decreased 30 - 44 mL/min/1.73m2 Severely decreased 15 - 29 mL/min/1.73m2 Kidney Failure < 15 mL/min/1.73m2 *Relative to young adult level Estimated glomerular filtration rate is determined by the 2020 CKD-EPI equation recommended by the National Kidney Foundation (A Unifying Approach to GFR Estimation: Recommendations of the NKF-ASK Task Force on Reassessing the Inclusion of Race in Diagnosing Kidney Disease, JASN 2020). The CKD-EPI equation should not be used for patients with unstable renal function and has not been validated in children and those over 70. Current interpretive data was last reviewed 2021. Blood 07/15/2024 11:5 6 AM CDT 07/15/2024 12:06 PM CDT us Fariha Shin MD LAB BLOOD ORDERABLES Final Result [facility] [place] [place] [address] * Vitamin D 25 hydroxy (07/15/2024 11:56 AM CDT) Vitamin D 25-OH 57 30 - 80 ng/mL Blood 07/15/2024 11:5 6 AM CDT 07/15/2024 12:06 PM CDT Fariha Shin MD LAB BLOOD ORDERABLES Final Result [facility] [place] [place] [address] * Phosphorus (07/15/2024 11:56 AM CDT) Phosphorus, pl 3.2 2.3 - 4.5 mg/dL Blood 07/15/2024 11:5 6 AM CDT 07/15/2024 12:06 PM CDT Fariha Shin MD LAB BLOOD ORDERABLES Final Result Performing Organization Address City/[facility]/ZIP Co de Phone Number [facility] Department [place] [address] * Basic metabolic panel (07/15/2024 11:56 AM CDT) Pathologist [facility] Sodium 142 135 - 145 mmol/L Potassium, pl 4.6 3.3 - 4.9 mmol/L [facility] Chloride 108 97 - 110 mmol/L [facility] CO2 27 22 - 32 mmol/L [facility] Anion gap 7 2 - 15 mmol/L [facility] BUN 17 6 - 25 mg/dL [facility] Creatinine 0.67 0.60 - 1.10 mg/dL [facility] Glucose 101 70 - 199 mg/dL [facility] Comment: Interpretive Data Fasting glucose >/= 126 mg/dl is diagnostic for diabetes. Fasting is defined as no caloric intake for at least 8 hours. Fasting glucose between 100 mg/dl to 125 mg/dl is diagnostic of prediabetes. In a patient with classic symptoms of hyperglycemia or hyperglycemic crisis, a random glucose >/= 200 mg/dl is diagnostic for diabetes. In the absence of unequivocal hyperglycemia, results should be confirmed by repeat testing. The classification and Diagnosis of Diabetes Diabetes Care 2021; 46: S19-S40. Current interpretive data was last revised 2022. Calcium 9.3 8.5 - 10.3 mg/dL [facility] Blood 07/15/2024 11:5 6 AM CDT 07/15/2024 12:06 PM CDT Fariha Shin MD LAB BLOOD ORDERABLES Final Result Performing Organization Address [facility] Co de Phone Number [facility] Department [place] [address] * Surgical pathology (05/17/2024 11:13 AM UNIFORM ROOM ATTENDANT) Tissue specimen (specimen) (Ovary(ies) with or without tube, non-tumor) 05/17/2024 11:13 AM UNIFORM ROOM ATTENDANT Tissue specimen (specimen) (Ovary(ies) with or without tube, tumor) 05/17/2024 11:17 AM UNIFORM ROOM ATTENDANT Narrative PATHOLOGY [facility] - 05/23/2024 12:37 PM UNIFORM ROOM ATTENDANT EPIC results best viewed via link to PDF [facility] [place] [address] Note to Patients: This report may contain a detailed description of human tissue sent by a health care provider to the laboratory for pathologic evaluation. The content of this report is essential for diagnosis and may provide important critical findings. This information may be unfamiliar to patients to review without a medical professional present. It is advised that the patient review this report in the presence of a health care provider who can answer questions and explain the details. SURGICAL PATHOLOGY REPORT FINAL Patient Name: DIVINA MELTON Gender: F : 1970 (Age: 53) Address: [address] [place], [place] [address] Hospital #: [id number] Taken:05/17/2024 Received:05/17/2024 Reported: 05/23/2024 Patient Type: [facility] Service: Surgery Location: [facility] OR POD1 Physician(s): Lillian Wells Jr., M.D. Diagnosis: A. Ovary and fallopian tube remnant , right, salpingo-oophorectomy - Ovary with no histopathologic abnormality - Benign mesothelial cyst (see comment) - Entire specimen submitted for microscopic examination B. Left ovary , oophorectomy - Serous cystadenoma - Entire specimen submitted for microscopic examination ud/05/23/2024 07:22 By this signature, I attest that the above diagnosis is based upon my personal examination of the slides(and/or other material indicated in the diagnosis). Sandro Rordiguez M.D., Ph.D. Report Electronically Reviewed and Signed Out By Sandro Rodriguez M.D., Ph.D. 05/23/2024 12:37:25 Microscopic Description and Comment: Microscopic examination substantiates the above cited diagnosis. Part A: The sections show an unremarkable ovary and a small benign mesothelial cyst. We note that a fallopian tube remnant was not identified grossly or microscopically (the entire specimen was submitted for microscopic examination). Kamryn Hartmann M.D. History: The patient is a 53-year-old woman with ER positive breast cancer and RAD51C germline mutation. Operative procedure: Laparoscopic bilateral salpingo-oophorectomy. Specimen(s) Received: A: Right ovary and tubal remnant B: Left ovary Gross Description: Received in two formalin jars, each labeled with the patient's identifiers. A. Labeled right ovary and tubal remnant is a 3.0 g, 2.3 x 1.4 x 1.2 cm intact, carr-pink, nodular ovary with a 1.3 x 1.2 cm unilocular, thin-walled serous cyst. Sectioning reveals rubbery, mottled ovarian parenchyma with no focal lesions. A fallopian tube remnant is not grossly identified. Entirely submitted. Labeled A1 to A3. Jar 0. B. Labeled left ovary is a 8.1 x 6.0 x 1.4 cm collapsed unilocular, thin-walled cyst. The internal lining is carr-white and mottled and is remarkable for a 2.2 x 1.1 cm additional unilocular, smooth-lined cyst within the wall. There are also two areas of carr-white, raised excrescences. Entirely submitted. Labeled B1-excrescences; B2 to B9-cyst wall rolls. Jar 0. lxd/05/18/2024 14:33 PA(s): JUD Monroe PA ([facility])CM By this signature, I attest that the above diagnosis is based upon my personal examination of the slides(and/or other material). Addenda/Procedures The performance characteristics of some immunohistochemical stains, fluorescence in-situ hybridization tests and immunophenotyping by flow cytometry cited in this report (if any) were determined by the Surgical Pathology and Flow Cytometry Departments at [facility] as part of an ongoing quality control representative program and in compliance with federally mandated regulations drawn from the Clinical Laboratory Improvement Act of 1988 (CLIA '88). Some of these tests rely on the use of analyte specific reagents and are subject to specific labeling requirements by the US Food and Drug Administration. Such diagnostic tests may only be performed in a facility that is certified by the Department of Health and Human Services as a high complexity laboratory under CLIA '88. The FDA has determined that such clearance or approval is not necessary. This test is used for clinical purposes. It should not be regarded as investigational or for research. Nevertheless, federal rules concerning the medical use of analyte specific reagents require that the following disclaimer be attached to the report: This test was developed and its performance characteristics determined by the Surgical Pathology and Flow Cytometry Departments of [facility]. It has not been cleared or approved by the U. S. Food and Drug Administration. IMAGES AND SCANNED DOCUMENTS, IF INCLUDED, ONLY VIEWABLE IN PDF VERSION OF REPORT Deb Rodriguez MD LAB PATHOLOGY ORDERABLE S Final Result PATHOLOGY [facility] [address] [place], [place] [phone] * Cytology (05/17/2024 10:50 AM UNIFORM ROOM ATTENDANT) Fluid (Pelvic Washing (Cytology)) 05/17/2024 10:50 AM UNIFORM ROOM ATTENDANT Narrative PATHOLOGY [facility] - 05/18/2024 2:50 PM UNIFORM ROOM ATTENDANT EPIC results best viewed via link to PDF [facility] [place] [address] Note to Patients: This report may contain a detailed description of human tissue sent by a health care provider to the laboratory for pathologic evaluation. The content of this report is essential for diagnosis and may provide important critical findings. This information may be unfamiliar to patients to review without a medical professional present. It is advised that the patient review this report in the presence of a health care provider who can answer questions and explain the details. CYTOPATHOLOGY REPORT FINAL Patient Name: DIVINA MELTON Gender: F : 1970 (Age: 53) Address: [address] [place] [address] [place] [address] Hospital #: [id number] Taken:05/17/2024 Received:05/17/2024 Reported: 05/18/2024 Patient Type: [facility] Service: Gynecology Location: [facility] OR POD1 Physician(s): Lillian Wells Jr., M.D. Katherine Clifton, M.D. FINAL DIAGNOSIS A. Pelvic washing: - Negative for malignancy udch/05/18/2024 11:37 By this signature, I attest that the above diagnosis is based upon my personal examination of the slides(and/or other material indicated in the diagnosis). Allan Banda M.D. Report Electronically Reviewed and Signed Out By Allan Banda M.D. 05/18/2024 14:50:41 Danyel Betancourt, CT(ASCP), [facility] Gross Description A. Pelvic washin ml clear fluid - 1 Pap stained ThinPrep. 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 Some of these tests rely on the use of analyte specific reagents and are subject to specific labeling requirements by the US Food and Drug Administration. Such diagnostic tests may only be performed in a facility that is certified by the Department of Health and Human Services as a high complexity laboratory under CLIA '88. The FDA has determined that such clearance or approval is not necessary. This test is used for clinical purposes. It should not be regarded as investigational or for research. Nevertheless, federal rules concerning the medical use of analyte specific reagents require that the following disclaimer be attached to the report: This test was developed and its performance characteristics determined by the Surgical Pathology and Flow Cytometry Departments of [facility]. It has not been cleared or approved by the U. S. Food and Drug Administration. Result [facility] Deb Rodriguez MD LAB CYTOLOGY ORDERABLES Final Result PATHOLOGY [facility] 3rd Floor [place], [place] [phone] * CO AN ELECTIVE ENDOTRACHEAL AIRWAY, CO AN PROCEDURE PLACEHOLDER (05/17/2024 10:40 AM UNIFORM ROOM ATTENDANT) Narrative Jaqueline Colón CRNA - 05/17/2024 10:40 AM UNIFORM ROOM ATTENDANT Jaqueline Colón CRNA 05/17/2024 10:41 AM Airway Patient location: OR Urgency: elective Indications for airway management: anesthesia Difficult airway: no Staff: Supervising provider: Yosef Bojorquez MD Placed by: DESIGN QUALITY ENGINEER: Jaqueline Colón CRNA Emergent airway documentation: Risks and benefits discussed: yes Consent obtained: yes Consent given by: patient Airway prep: Preoxygenated: yes Patient position: sniffing Mask difficulty assessment: 0 - not attempted Spontaneous ventilation during airway: absent Sedation level during airway: GA Final airway details: Final airway type: endotracheal airway Tube type: ETT ETT size: 7.0 mm Cuffed: yes Technique used for successful ETT placement: direct laryngoscopy Insertion site: oral Blade type: Shanthi Blade size: 4 Cormack-Lehane (direct): grade I - full view of glottis Cuff inflated with: air ETT to gums: 21 cm Placement verified by: auscultation and CO2 detection Airway secured with: silk tape Number of attempts: 1 Planned trial extubation: yes Yosef Bojorquez MD ANESTHESIA ORDERABLES Fi nal Result * POCT hCG, urine (05/17/2024 8:25 AM UNIFORM ROOM ATTENDANT) HCG, ur, POC Negative Negative Lot Number [id number] QC Backgroud Clear Acceptable QC Control Line Acceptable Urine 05/17/2024 8:25 AM UNIFORM ROOM ATTENDANT Result [facility] Larry Law NP POINT OF CARE TEST ORDER SANAZ Final Result * Screening Mammogram Left W Jorge Unilateral Only (12/14/2023 9:36 AM CDT) Anatomical Region Laterality Modality Breast Left Mammography Narrative 12/14/2023 3:26 PM CDT Mammogram Technique: Left Breast Digital Breast Tomosynthesis, Unilateral C-view 2D Screening mammogram. Views obtained: left craniocaudal and left mediolateral oblique. Computer Aided Detection was performed. Mammogram Findings: The present examination has been compared to prior imaging studies performed at [facility] on 11/22/2020, 12/02/2021 and 12/08/2022. There are scattered areas of fibroglandular density. There is no suspicious abnormality in the left breast. Patient status post contralateral mastectomy for personal history of breast cancer. Impression: There is no mammographic evidence of malignancy. Supplemental screening breast MRI as an adjunct to mammography is recommended for this patient with very strong personal history of breast cancer. Annual screening mammography is recommended. OVERALL FINAL ASSESSMENT: BI-RADS CATEGORY 1: Negative. Procedure Note Liza Oconnor MD - 12/14/2023 Mammogram Technique: Left Breast Digital Breast Tomosynthesis, Unilateral C-view 2D Screening mammogram. Views obtained: left craniocaudal and left mediolateral oblique. Computer Aided Detection was performed. Mammogram Findings: The present examination has been compared to prior imaging studies performed at [facility] on 11/22/2020, 12/02/2021 and 12/08/2022. There are scattered areas of fibroglandular density. There is no suspicious abnormality in the left breast. Patient status post contralateral mastectomy for personal history ofbreast cancer. Impression: There is no mammographic evidence of malignancy. Supplemental screening breast MRI as an adjunct to mammography is recommended for this patient with very strong personal history of breast cancer. Annual screening mammography is recommended. OVERALL FINAL ASSESSMENT: BI-RADS CATEGORY 1: Negative. Belinda Honeycutt NP IMG MAMMO PROCEDURES Final Result * Pap and High Risk HPV and Genotyping (Cytology Component) (10/13/2022 11:15 AM CDT) Thin prep (Pap test) 10/13/2022 11:15 AM CDT 10/13/2022 1:56 PM CDT Narrative PATHOLOGY [facility] - 10/16/2022 10:36 AM CDT EPIC results best viewed via link to PDF [facility] Nelia [facility] [place] [address] Note to Patients: This report may contain a detailed description of human tissue sent by a health care provider to the laboratory for pathologic evaluation. The content of this report is essential for diagnosis and may provide important critical findings. This information may be unfamiliar to patients to review without a medical professional present. It is advised that the patient review this report in the presence of a health care provider who can answer questions and explain the details. CYTOPATHOLOGY REPORT FINAL Patient Name: DIVINA MELTON Gender: F : 1970 (Age: 52) Address: [address] [place], [place] [phone] Hospital #: [id number] Service: MANUFACTURING MECHANIC Location: Patient Type: [facility] SPECIMEN Taken: 10/13/2022 Received: 10/13/2022 Accessioned: 10/14/2022 Reported: 10/16/2022 Physician(s): Angela Salgado MD FINAL INTERPRETATION SOURCE OF SPECIMEN Liquid based Thin Prep pap with HPV: STATEMENT OF ADEQUACY - Satisfactory for evaluation - Endocervical cells/transformation zone sample absent GENERAL CATEGORIZATION: - Negative for squamous intraepithelial lesion or malignancy INTERPRETATION: - Atrophy Comments HPV HR 16- Not detected HPV HR 18-Not detected HPV HR non 16/18-Not detected Interpretive Data Nucleic acid amplification for detection of high-risk Human Papilloma virus (HPV) is performed by the Irlanda Kathleen 6800 HPV test. This assay specifically detects HPV- 16 and HPV-18 genotypes. The following HPV genotypes are detected as high-risk HPV: HPV-31, 33, 35, ,39, 45, 51, 52, 56, 58, 59, 66, and 68. This assay has been approved by the [place] Food and Drug Administration for detection of HPV in cervical specimens collected by a physician using an endocervical brush/spatula or cervical broom and placed in the ThinPrep Pap Test PreservCyt collection containers. The performance characteristics of this test have been verified by the [facility] Molecular Infectious Disease laboratory. Correlate with separately reported cytology results, as applicable. Interpretive data last revised 22 laurel/10/16/2022 10:36 CURT Ho(ASCP) Report Electronically Reviewed and Signed Out By CURT Ho(ASCP) 10/16/2022 10:36:40 Cervicovaginal Cytology (Pap Test) Disclaimer: The Pap test is a screening test used to detect cervical cancer and its precursors; it is not a diagnostic procedure. False negative and false positive results do occur. Pap test results should be interpreted in the context of pertinent clinical information and biopsy results as indicated. [facility] Clinical Laboratory Improvement Amendments (CLIA) mandate that cytologic and histologic results be correlated for laboratory clinical quality assurance associate & improvement standards. FOR ALL HIGH-GRADE CASES we request submission of follow-up histological material and/or reports that have not been previously provided so that we may fulfill said required standards. Gross Description A. Liquid based Thin Prep pap with HPV: Cervical/vaginal - Screening ThinPrep Clinical Diagnosis and History Last Menstrual Period: 3 yrs ago The patient is a 52 year old woman with denies hx of abnormal. Report Images and scanned documents, if included only viewable in PDF version The performance characteristics of some immunohistochemical stains, in-situ hybridization and fluorescence in-situ hybridization tests and immunophenotyping by flow cytometry cited in this report (if any) were determined by the Surgical Pathology Department at [facility] as part of an ongoing quality control representative program and in compliance with federally mandated regulations drawn from the Clinical Laboratory Improvement Act of 1988 (CLIA '88). Some of these tests rely on the use of analyte specific reagents and are subject to specific labeling requirements by the US Food and Drug Administration. Such diagnostic tests may only be performed in a facility that is certified by the Department of Health and Human Services as a high complexity laboratory under CLIA '88. The FDA has determined that such clearance or approval is not necessary. This test is used for clinical purposes. It should not be regarded as investigational or for research. Nevertheless, federal rules concerning the medical use of analyte specific reagents require that the following disclaimer be attached to the report: This test was developed and its performance characteristics determined by the [facility] [place] [id number]|2024-08-02 10:37:00|2024-08-02 10:37:00|XMS_ITS|VICTORIANO JACINTO|External Medical Summaries|[id number]|" Referral Summary Created on: August 02, 2024 Divina Melton : 1970 Sex: Female Author Organization [facility] Address [address] [place] [phone] Care Team Providers Care Rounding Machine Operator Name Role Phone Ottoniel Hernandez MD Unavailable Fariha Shin MD Unavailable [phone]- [phone] Manuel Nevarez MD Primary Care Prov ider Edith Langley MD PhD Unavailable [phone] Encounters Date Type Department Care Team Description 07/15/2024 Orders Only [facility] Oncology [address] [facility] Floor 8 [place] [phone] Gricel Domingo, RN Malignant neoplasm of overlapping sites of right breast in female, estrogen receptor positive (HCC) (Primary Dx); skilled nursing (current) use of aromatase inhibitors 07/15/2024 1:30 PM CDT Infusion [facility] - Infusion [address] [facility] Floor [address] [place] [address] Malignant neoplasm of overlapping sites of right breast in female, estrogen receptor positive (HCC) (Primary Dx); Malignant neoplasm of overlapping sites of left breast in female, estrogen receptor positive (HCC) 07/15/2024 12:00 PM CDT Lab [facility] - Lab Collection [address] [facility] Floor [address] [place] [address] Malignant neoplasm of overlapping sites of left breast in female, estrogen receptor positive (HCC) 06/03/2024 Orders Only [facility] Oncology [address] [place] [address] Floor 8 [place] [address] Gricel Domingo RN 06/03/2024 8:15 AM CDT Office Visit [facility] Oncology [address] [place] [address] Floor 8 [place] [address] Fariha Shin MD Malignant neoplasm of overlapping sites of left breast in female, estrogen receptor positive (HCC) (Primary Dx); skilled nursing (current) use of aromatase inhibitors 05/24/2024 Orders Only [facility] Oncology [address] [place] [address] Floor 8 [place] [address] Gricel Domingo RN 05/23/2024 Results Follow-Up [facility] Obstetrics and Gynecology [address] [facility] 13th [place] [address] [place] [address] Ottoniel Hernandez MD PhD 05/17/2024 10:05 AM UNIFORM ROOM ATTENDANT - 05/17/2024 11:55 AM [facility] Surgery [facility] Operating Room 1 [place] [address] Deb Rodriguez MD LAPAROSCOPIC SALPINGO-OOPHORECTOM Y 05/17/2024 10:14 AM UNIFORM ROOM ATTENDANT Anesthesia Event [facility] Operating Room 1 [place] [address] Yosef Bojorquez MD Montgomery, Andrea J., NP 05/17/2024 7:23 AM UNIFORM ROOM ATTENDANT - 05/17/2024 2:24 PM [facility] Hospital Encounter [facility] Operating Room [address] [place] [address] Deb Rodriguez MD RAD51C gene mutation positive Discharge Disposition: Discharge to home or self care 05/16/2024 Telephone [facility] Obstetrics and Gynecology [address] [facility] 13th [place] [address] [place] [phone] Varela, Niru Surgery Confirmation from Last 3 Months Allergies Active Allergy Reactions Criticality Noted Date Comments Sulfa (Sulfonamide Antibiotics) Nausea & Vomiting,Vomiting Low 02/18/2021 Sulfanilamide Nausea & Vomiting Low Medications multivitamin tabletIndications: Vitamin Deficiency Prevention Take 1 tablet by mouth with lunch 11/10/19 21 Active clobetasoL (TEMOVATE) 0.05 % creamIndications:P laque Psoriasis Apply 1 application topically 2 (two) times a day Active goserelin acetate (ZOLADEX SUBQ)Indications:b reast cancer Inject under the skin every 30 (thirty) days Last dose was 04/05/2024, Patient will no longer take this after 05/17 surgery Active losartan (COZAAR) 100 mg tabletIndications: hypertension Take 1 tablet (100 mg total) by mouth every morning 03/05/20 22 Active atorvastatin (LIPITOR) 20 mg tabletIndications: hyperlipidemia Take 1 tablet (20 mg total) by mouth daily with dinner 05/08/19 23 Active levothyroxine (SYNTHROID) 75 mcg tabletIndications: hypothyroidism Take 1 tablet (75 mcg total) by mouth site engineer before breakfast 04/16/19 25 Active zoledronic acid (ZOMETA) 4 mg/5 mL injectionIndicatio ns: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,R/t Breast cancer treatment Infuse into a venous catheter every 6 (six) months Next Dose July 15, 2024 Active cholecalciferol (VITAMIN D-3) 5,000 unit tabletIndications: Prevention of Vitamin D Deficiency,bone loss prevention Take 1 tablet (5,000 Units total) by mouth every evening Active senna (SENOKOT) 8.6 mg tabletIndications: constipation Take 1 tablet by mouth daily as needed for constipation Active ibuprofen (ADVIL,MOTRIN) 600 mg tablet Take 1 tablet (600 mg total) by mouth every 6 (six) hours as needed for pain 60 tablet 05/17/19 25 Active acetaminophen (TYLENOL) 500 mg tablet Take 2 tablets (1,000 mg total) by mouth every 6 (six) hours as needed for pain 60 tablet 05/17/19 25 Active ondansetron ODT (ZOFRAN-ODT) 4 mg disintegrating tablet Take 1 tablet (4 mg total) by mouth every 8 (eight) hours as needed for nausea or vomiting 10 tablet 05/17/19 25 Active polyethylene glycol (MIRALAX) 17 gram/dose bulk powder Take 17 g by mouth daily 510 g 05/17/19 25 Active oxyCODONE (ROXICODONE) 5 mg immediate release tabletIndications: Pain Take 1 tablet (5 mg total) by mouth every 4 (four) hours as needed for pain 15 tablet 05/17/19 25 Active anastrozole (ARIMIDEX) 1 mg tabletIndications: Early Breast Cancer HR Positive and Postmenopausal Take 1 tablet (1 mg total) by mouth every morning 90 tablet 3 06/01/19 [address] (VOLTAREN) 75 mg EC tablet 06/01/19 25 Active Active Problems Problem Noted Date Diagnosed Date 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 EMT 8.8 mm - CA-125 normal 02/16 Plan: - Discussed imaging findings with normal CA125 suggest mass is benign, however, final diagnosis will be pending pathology - Discussed recommendation for risk-reducing BSO given 6.7% lifetime risk of ovarian cancer, with added benefit of hormone reduction given breast cancer history. Anticipate adhesions given BTL history. - No indication for hysterectomy or endometrial sampling given no PMB and EMT <11mm. No increased risk of endometrial cancer with RAD51 mutation - Consented for [facility]. Blood consent signed. For case scheduling. History of bilateral breast cancer 07/29/2021 Malignant neoplasm of overla pping sites of right breast in female, estrogen receptor positive 02/16/2021 Cancer Staging:Pathologic stage from 02/16/2021:Stage IB(pT3, pN1mi, cM0, G2, ER+, CO+, HER2-) - Signed by Jasmin Hollingsworth MD PhD on 02/16/2021 Abnormal mammography 11/22/2020 Malignant neoplasm of overla pping sites of left breast in female, estrogen receptor positive 12/27/2012 Cancer Staging:Pathologic: Unsigned Immunizations Immunization Administration Dates Next Due Influenza, Quadrivalent, Split, Intramuscular Influenza, Trivalent, IM (MDV) 12/30/2020 Influenza, Unspecified 09/07/2013 Moderna SARS-CoV-2 Monovalent Vaccination (12+ Y RS) 12/30/2020 Pfizer SARS-CoV-2 Monovalent Vaccination (12+ Yrs) PURPLE 12/30/2001 Pfizer Sars-Cov-2 Bivalent Vaccination (12+ YRS) 02/21/2022 Social History Tobacco Use Types Packs/Day Years Used Date Smoking Tobacco: Former Cigarettes - 2010 Passive Smoke Exposure: Past Smokeless Tobacco: Never Tobacco Cessation:Counseling Given: Not Answered AUDIT-C Answer Date Recorded Q1: How often do you have a drink containing alcohol? Never 04/22/2024 Q2: How many drinks containi ng alcohol do you have on a typical day when you are drinking? Patient does not drink Q3: How often do you have si x or more drinks on one occasion? Never 04/22/2024 Hunger Vital Sign Answer Date Recorded Within the past 12 months, y ou worried that your food would run out before you got the money to buy more. Patient declined Within the past 12 months, t he food you bought just didn't last and you didn't have money to get more. Patient declined Personal Safety Answer Date Recorded Have you ever been in or are you currently in a harmful physical or emotional relationship or is someone making you feel afraid or unsafe? Denies 05/17/2024 Comments No Sex and Gender Information Value Date Recorded Sex Assigned at Not on file Legal Sex Female 2:25 AM UNIFORM ROOM ATTENDANT Gender Identity Not on file Sexual Orientation Not on file Last Filed Vital Signs Vital Sign Reading Time Taken Comments Blood Pressure 123/76 07/15/2024 12:14 PM CDT Pulse 73 07/15/2024 12:14 PM CDT Temperature 36.8 C (98.2 F) 07/15/2024 12:14 PM CDT Respiratory Rate 16 07/15/2024 12:14 PM CDT Oxygen Saturation 98% 07/15/2024 12:14 PM CDT Inhaled Oxygen Concentration - - Weight 52 kg (114 lb 10.2 oz) 07/15/2024 12:14 P M CDT Height 162.6 cm (5' 4 ) 04/22/2024 3:50 PM UNIFORM ROOM ATTENDANT Body Mass Index 19.68 04/22/2024 3:50 PM UNIFORM ROOM ATTENDANT Plan of Treatment Not on file Procedures Procedure Name Priority Date/Time Associated Diagnosis Comments EGFR Routine 07/15/2024 11:56 AM CDT Malignant neoplasm of overlapping sites of left breast in female, estrogen receptor positive (HCC) BASIC METABOLIC PANEL Routine 07/15/2024 11:56 AM CDT Malignant neoplasm of overlapping sites of left breast in female, estrogen receptor positive (HCC) PHOSPHORUS Routine 07/15/2024 11:56 AM CDT Malignant neoplasm of overlapping sites of left breast in female, estrogen receptor positive (HCC) VITAMIN D 25 HYDROXY Routine 07/15/2024 11:56 AM CDT Malignant neoplasm of overlapping sites of left breast in female, estrogen receptor positive (HCC) SURGICAL PATHOLOGY Routine 05/17/2024 11 :13 AM UNIFORM ROOM ATTENDANT RAD51C gene mutation positive CYTOLOGY Routine 05/17/2024 10:50 AM UNIFORM ROOM ATTENDANT RAD51C gene mutation positive CO AN PROCEDURE PLACEHOLDER Routine 05/17/2024 10:40 AM UNIFORM ROOM ATTENDANT CO AN ELECTIVE ENDOTRACHEAL AIRWAY Routine 05/17/2024 10:40 AM UNIFORM ROOM ATTENDANT LAPAROSCOPIC SALPINGO-OOPHORECTO MY 05/17/2024 10:18 AM UNIFORM ROOM ATTENDANT RAD51C gene mutation positive POCT HCG, URINE Routine 05/17/2024 8:25 AM UNIFORM ROOM ATTENDANT SCREENING MAMMOGRAM LEFT W JORGE UNILATERAL ONLY Schedule Routine, Read Routine (OP Routine) 12/14/2023 9:36 AM CDT Malignant neoplasm of overlapping sites of left breast in female, estrogen receptor positive (HCC) Malignant neoplasm of overlapping sites of right breast in female, estrogen receptor positive (HCC) History of bilateral breast cancer History of partial mastectomy of left breast History of mastectomy, right Malignant neoplasm of upper-outer quadrant of right breast in female, estrogen receptor positive (HCC) Malignant neoplasm of right breast in female, estrogen receptor positive, unspecified site of breast (HCC) PAP AND HIGH RISK HPV, REFLEX TO GENOTYPING Routine 10/13/2022 11:15 AM CDT Healthcare maintenance from Last 3 Months or Most Recently Relevant to Health Maintenance Results * eGFR (07/15/2024 11:56 AM CDT) eGFR >90 >=60 mL/min/1. 73 m2 Comment: Interpretive Data Reference Interval Normal >/= 90 mL/min/1.73m2 Mildly decreased* 60 - 89 mL/min/1.73m2 Mildly to moderately decreased 45 - 59 mL/min/1.73m2 Moderately to severely decreased 30 - 44 mL/min/1.73m2 Severely decreased 15 - 29 mL/min/1.73m2 Kidney Failure < 15 mL/min/1.73m2 *Relative to young adult level Estimated glomerular filtration rate is determined by the 2020 CKD-EPI equation recommended by the National Kidney Foundation (A Unifying Approach to GFR Estimation: Recommendations of the NKF-ASK Task Force on Reassessing the Inclusion of Race in Diagnosing Kidney Disease, JASN 2020). The CKD-EPI equation should not be used for patients with unstable renal function and has not been validated in children and those over 70. Current interpretive data was last reviewed 2021. Blood 07/15/2024 11:5 6 AM CDT 07/15/2024 12:06 PM CDT us Fariha Shin MD LAB BLOOD ORDERABLES Final Result [facility] Department of [place] [address] * Vitamin D 25 hydroxy (07/15/2024 11:56 AM CDT) Vitamin D 25-OH 57 30 - 80 ng/mL Blood 07/15/2024 11:5 6 AM CDT 07/15/2024 12:06 PM CDT Fariha Shin MD LAB BLOOD ORDERABLES Final Result Performing Organization Address City/[facility] Co de Phone Number [facility] Department [place] [address] * Phosphorus (07/15/2024 11:56 AM CDT) [facility] Phosphorus, pl 3.2 2.3 - 4.5 mg/dL Blood 07/15/2024 11:5 6 AM CDT 07/15/2024 12:06 PM CDT Fariha Shin MD LAB BLOOD ORDERABLES Final Result Performing Organization Address City/[facility] de Phone Number [facility] [place] [address] * Basic metabolic panel (07/15/2024 11:56 AM CDT) [facility] Sodium 142 135 - 145 mmol/L Potassium, pl 4.6 3.3 - 4.9 mmol/L [facility] Chloride 108 97 - 110 mmol/L [facility] CO2 27 22 - 32 mmol/L [facility] Anion gap 7 2 - 15 mmol/L [facility] BUN 17 6 - 25 mg/dL [facility] Creatinine 0.67 0.60 - 1.10 mg/dL [facility] Glucose 101 70 - 199 mg/dL [facility] Comment: Interpretive Data Fasting glucose >/= 126 mg/dl is diagnostic for diabetes. Fasting is defined as no caloric intake for at least 8 hours. Fasting glucose between 100 mg/dl to 125 mg/dl is diagnostic of prediabetes. In a patient with classic symptoms of hyperglycemia or hyperglycemic crisis, a random glucose >/= 200 mg/dl is diagnostic for diabetes. In the absence of unequivocal hyperglycemia, results should be confirmed by repeat testing. The classification and Diagnosis of Diabetes Diabetes Care 2021; 46: S19-S40. Current interpretive data was last revised 2022. Calcium 9.3 8.5 - 10.3 mg/dL [facility] Blood 07/15/2024 11:5 6 AM CDT 07/15/2024 12:06 PM CDT Fariha Shin MD LAB BLOOD ORDERABLES Final Result [facility] Department [place] [address] * Surgical pathology (05/17/2024 11:13 AM UNIFORM ROOM ATTENDANT) Tissue specimen (specimen) (Ovary(ies) with or without tube, non-tumor) 05/17/2024 11:13 AM UNIFORM ROOM ATTENDANT Tissue specimen (specimen) (Ovary(ies) with or without tube, tumor) 05/17/2024 11:17 AM UNIFORM ROOM ATTENDANT Narrative PATHOLOGY [facility] - 05/23/2024 12:37 PM UNIFORM ROOM ATTENDANT EPIC results best viewed via link to PDF [facility] Laboratory [place] [address] Note to Patients: This report may contain a detailed description of human tissue sent by a health care provider to the laboratory for pathologic evaluation. The content of this report is essential for diagnosis and may provide important critical findings. This information may be unfamiliar to patients to review without a medical professional present. It is advised that the patient review this report in the presence of a health care provider who can answer questions and explain the details. SURGICAL PATHOLOGY REPORT FINAL Patient Name: DIVINA MELTON Gender: F : 1970 (Age: 53) Address: [address] [place] [id number] Hospital #: [id number] Taken:05/17/2024 Received:05/17/2024 Reported: 05/23/2024 Patient Type: [facility] Service: Surgery Location: [facility] Physician(s): Lillian Wells Jr., M.D. Diagnosis: A. Ovary and fallopian tube remnant , right, salpingo-oophorectomy - Ovary with no histopathologic abnormality - Benign mesothelial cyst (see comment) - Entire specimen submitted for microscopic examination B. Left ovary , oophorectomy - Serous cystadenoma - Entire specimen submitted for microscopic examination [facility]/05/23/2024 07:22 By this signature, I attest that the above diagnosis is based upon my personal examination of the slides(and/or other material indicated in the diagnosis). Sandro Rodriguez M.D., Ph.D. Report Electronically Reviewed and Signed Out By Sandro Rodriguez M.D., Ph.D. 05/23/2024 12:37:25 Microscopic Description and Comment: Microscopic examination substantiates the above cited diagnosis. Part A: The sections show an unremarkable ovary and a small benign mesothelial cyst. We note that a fallopian tube remnant was not identified grossly or microscopically (the entire specimen was submitted for microscopic examination). Kamryn Hartmann M.D. History: The patient is a 53-year-old woman with ER positive breast cancer and RAD51C germline mutation. Operative procedure: Laparoscopic bilateral salpingo-oophorectomy. Specimen(s) Received: A: Right ovary and tubal remnant B: Left ovary Gross Description: Received in two formalin jars, each labeled with the patient's identifiers. A. Labeled right ovary and tubal remnant is a 3.0 g, 2.3 x 1.4 x 1.2 cm intact, carr-pink, nodular ovary with a 1.3 x 1.2 cm unilocular, thin-walled serous cyst. Sectioning reveals rubbery, mottled ovarian parenchyma with no focal lesions. A fallopian tube remnant is not grossly identified. Entirely submitted. Labeled A1 to A3. Jar 0. B. Labeled left ovary is a 8.1 x 6.0 x 1.4 cm collapsed unilocular, thin-walled cyst. The internal lining is carr-white and mottled and is remarkable for a 2.2 x 1.1 cm additional unilocular, smooth-lined cyst within the wall. There are also two areas of carr-white, raised excrescences. Entirely submitted. Labeled B1-excrescences; B2 to B9-cyst wall rolls. Jar 0. lxd/05/18/2024 14:33 PA(s): JUD Monroe PA (ASCP)CM By this signature, I attest that the above diagnosis is based upon my personal examination of the slides(and/or other material). Addenda/Procedures The performance characteristics of some immunohistochemical stains, fluorescence in-situ hybridization tests and immunophenotyping by flow cytometry cited in this report (if any) were determined by the Surgical Pathology and Flow Cytometry Departments at [facility] as part of an ongoing quality control representative program and in compliance with federally mandated regulations drawn from the Clinical Laboratory Improvement Act of 1988 (CLIA '88). Some of these tests rely on the use of analyte specific reagents and are subject to specific labeling requirements by the US Food and Drug Administration. Such diagnostic tests may only be performed in a facility that is certified by the Department of Health and Human Services as a high complexity laboratory under CLIA '88. The FDA has determined that such clearance or approval is not necessary. This test is used for clinical purposes. It should not be regarded as investigational or for research. Nevertheless, federal rules concerning the medical use of analyte specific reagents require that the following disclaimer be attached to the report: This test was developed and its performance characteristics determined by the Surgical Pathology and Flow Cytometry Departments of [facility]. It has not been cleared or approved by the U. S. Food and Drug Administration. IMAGES AND SCANNED DOCUMENTS, IF INCLUDED, ONLY VIEWABLE IN PDF VERSION OF REPORT us Deb Rodriguez MD LAB PATHOLOGY ORDERABLE S Final Result PATHOLOGY [facility] 3rd Floor [place], [place] [phone] * Cytology (05/17/2024 10:50 AM UNIFORM ROOM ATTENDANT) Fluid (Pelvic Washing (Cytology)) 05/17/2024 10:50 AM UNIFORM ROOM ATTENDANT Narrative PATHOLOGY [facility] - 05/18/2024 2:50 PM UNIFORM ROOM ATTENDANT EPIC results best viewed via link to PDF [facility] [place] [address] Note to Patients: This report may contain a detailed description of human tissue sent by a health care provider to the laboratory for pathologic evaluation. The content of this report is essential for diagnosis and may provide important critical findings. This information may be unfamiliar to patients to review without a medical professional present. It is advised that the patient review this report in the presence of a health care provider who can answer questions and explain the details. CYTOPATHOLOGY REPORT FINAL Patient Name: DVIINA MELTON Gender: F : 1970 (Age: 53) Address: [address] [place], [place] [id number] Hospital #: [id number] Taken:05/17/2024 Received:05/17/2024 Reported: 05/18/2024 Patient Type: [facility] Service: Gynecology Location: [facility] Physician(s): Lillian Wells Jr., M.D. Katherine Clifton, M.D. FINAL DIAGNOSIS A. Pelvic washing: - Negative for malignancy ud/05/18/2024 11:37 By this signature, I attest that the above diagnosis is based upon my personal examination of the slides(and/or other material indicated in the diagnosis). Allan Banda M.D. Report Electronically Reviewed and Signed Out By Allan Banda M.D. 05/18/2024 14:50:41 Danyel Betancourt, CURT(ASCP), [facility] Gross Description A. Pelvic washin ml clear fluid - 1 Pap stained ThinPrep. 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 Some of these tests rely on the use of analyte specific reagents and are subject to specific labeling requirements by the US Food and Drug Administration. Such diagnostic tests may only be performed in a facility that is certified by the Department of Health and Human Services as a high complexity laboratory under CLIA '88. The FDA has determined that such clearance or approval is not necessary. This test is used for clinical purposes. It should not be regarded as investigational or for research. Nevertheless, federal rules concerning the medical use of analyte specific reagents require that the following disclaimer be attached to the report: This test was developed and its performance characteristics determined by the Surgical Pathology and Flow Cytometry Departments of [facility]. It has not been cleared or approved by the U. S. Food and Drug Administration. Deb Rodriguez MD LAB CYTOLOGY ORDERABLES Final Result Performing Organization Address City/State/[facility] Co de Phone Number PATHOLOGY [facility] [address]rd Floor [place], [place] [phone] * CO AN ELECTIVE ENDOTRACHEAL AIRWAY, CO AN PROCEDURE PLACEHOLDER (05/17/2024 10:40 AM UNIFORM ROOM ATTENDANT) Narrative Jaqueline Colón CRNA - 05/17/2024 10:40 AM UNIFORM ROOM ATTENDANT Jaqueline Colón CRNA 05/17/2024 10:41 AM Airway Patient location: OR Urgency: elective Indications for airway management: anesthesia Difficult airway: no Staff: Supervising provider: Yosef Bojorquez MD Placed by: DESIGN QUALITY ENGINEER: Jaqueline Colón CRNA Emergent airway documentation: Risks and benefits discussed: yes Consent obtained: yes Consent given by: patient Airway prep: Preoxygenated: yes Patient position: sniffing Mask difficulty assessment: 0 - not attempted Spontaneous ventilation during airway: absent Sedation level during airway: GA Final airway details: Final airway type: endotracheal airway Tube type: ETT ETT size: 7.0 mm Cuffed: yes Technique used for successful ETT placement: direct laryngoscopy Insertion site: oral Blade type: Sahnthi Blade size: 4 Cormack-Lehane (direct): grade I - full view of glottis Cuff inflated with: air ETT to gums: 21 cm Placement verified by: auscultation and CO2 detection Airway secured with: silk tape Number of attempts: 1 Planned trial extubation: yes us Yosef Bojorquez MD ANESTHESIA ORDERABLES Fi nal Result * POCT hCG, urine (05/17/2024 8:25 AM UNIFORM ROOM ATTENDANT) HCG, ur, POC Negative Negative Lot Number [id number] QC Backgroud Clear Acceptable QC Control Line Acceptable Urine 05/17/2024 8:25 AM UNIFORM ROOM ATTENDANT Larry Law NP POINT OF CARE TEST ORDER SANAZ Final Result * Screening Mammogram Left W Jorge Unilateral Only (12/14/2023 9:36 AM CDT) Anatomical Region Laterality Modality Breast Left Mammography Narrative 12/14/2023 3:26 PM CDT Mammogram Technique: Left Breast Digital Breast Tomosynthesis, Unilateral C-view 2D Screening mammogram. Views obtained: left craniocaudal and left mediolateral oblique. Computer Aided Detection was performed. Mammogram Findings: The present examination has been compared to prior imaging studies performed at [facility] on 11/22/2020, 12/02/2021 and 12/08/2022. There are scattered areas of fibroglandular density. There is no suspicious abnormality in the left breast. Patient status post contralateral mastectomy for personal history of breast cancer. Impression: There is no mammographic evidence of malignancy. Supplemental screening breast MRI as an adjunct to mammography is recommended for this patient with very strong personal history of breast cancer. Annual screening mammography is recommended. OVERALL FINAL ASSESSMENT: BI-RADS CATEGORY 1: Negative. Procedure Note Liza Oconnor MD - 12/14/2023 Mammogram Technique: Left Breast Digital Breast Tomosynthesis, Unilateral C-view 2D Screening mammogram. Views obtained: left craniocaudal and left mediolateral oblique. Computer Aided Detection was performed. Mammogram Findings: The present examination has been compared to prior imaging studies performed at [facility] on 11/22/2020, 12/02/2021 and 12/08/2022. There are scattered areas of fibroglandular density. There is no suspicious abnormality in the left breast. Patient status post contralateral mastectomy for personal history ofbreast cancer. Impression: There is no mammographic evidence of malignancy. Supplemental screening breast MRI as an adjunct to mammography is recommended for this patient with very strong personal history of breast cancer. Annual screening mammography is recommended. OVERALL FINAL ASSESSMENT: BI-RADS CATEGORY 1: Negative. Belinda Honeycutt NP IM MAMMO PROCEDURES Final Result * Pap and High Risk HPV and Genotyping (Cytology Component) (10/13/2022 11:15 AM CDT) Thin prep (Pap test) 10/13/2022 11:15 AM CDT 10/13/2022 1:56 PM CDT Narrative PATHOLOGY [facility] - 10/16/2022 10:36 AM CDT EPIC results best viewed via link to PDF [facility] [place] [address] Note to Patients: This report may contain a detailed description of human tissue sent by a health care provider to the laboratory for pathologic evaluation. The content of this report is essential for diagnosis and may provide important critical findings. This information may be unfamiliar to patients to review without a medical professional present. It is advised that the patient review this report in the presence of a health care provider who can answer questions and explain the details. CYTOPATHOLOGY REPORT FINAL Patient Name: DIVINA MELTON Gender: F : 1970 (Age: 52) Address: [address] [place] [id number] [facility] #: [id number] Service: MANUFACTURING MECHANIC Location: Patient Type: [facility] SPECIMEN Taken: 10/13/2022 Received: 10/13/2022 Accessioned: 10/14/2022 Reported: 10/16/2022 Physician(s): Angela Salgado MD FINAL INTERPRETATION SOURCE OF SPECIMEN Liquid based Thin Prep pap with HPV: STATEMENT OF ADEQUACY - Satisfactory for evaluation - Endocervical cells/transformation zone sample absent GENERAL CATEGORIZATION: - Negative for squamous intraepithelial lesion or malignancy INTERPRETATION: - Atrophy Comments HPV HR 16- Not detected HPV HR 18-Not detected HPV HR non 16/18-Not detected Interpretive Data Nucleic acid amplification for detection of high-risk Human Papilloma virus (HPV) is performed by the Irlanda Kathleen 6800 HPV test. This assay specifically detects HPV- 16 and HPV-18 genotypes. The following HPV genotypes are detected as high-risk HPV: HPV-31, 33, 35, ,39, 45, 51, 52, 56, 58, 59, 66, and 68. This assay has been approved by the [place] Food and Drug Administration for detection of HPV in cervical specimens collected by a physician using an endocervical brush/spatula or cervical broom and placed in the ThinPrep Pap Test PreservCyt collection containers. The performance characteristics of this test have been verified by the [facility] Molecular Infectious Disease laboratory. Correlate with separately reported cytology results, as applicable. Interpretive data last revised 22 laurel/10/16/2022 10:36 CURT Ho(ASCP) Report Electronically Reviewed and Signed Out By CURT Ho(ASCP) 10/16/2022 10:36:40 Cervicovaginal Cytology (Pap Test) Disclaimer: The Pap test is a screening test used to detect cervical cancer and its precursors; it is not a diagnostic procedure. False negative and false positive results do occur. Pap test results should be interpreted in the context of pertinent clinical information and biopsy results as indicated. [facility] Clinical Laboratory Improvement Amendments (CLIA) mandate that cytologic and histologic results be correlated for laboratory clinical quality assurance associate & improvement standards. FOR ALL HIGH-GRADE CASES we request submission of follow-up histological material and/or reports that have not been previously provided so that we may fulfill said required standards. Gross Description A. Liquid based Thin Prep pap with HPV: Cervical/vaginal - Screening ThinPrep Clinical Diagnosis and History Last Menstrual Period: 3 yrs ago The patient is a 52 year old woman with denies hx of abnormal. Report Images and scanned documents, if included only viewable in PDF version The performance characteristics of some immunohistochemical stains, in-situ hybridization and fluorescence in-situ hybridization tests and immunophenotyping by flow cytometry cited in this report (if any) were determined by the Surgical Pathology Department at [facility] as part of an ongoing quality control representative program and in compliance with federally mandated regulations drawn from the Clinical Laboratory Improvement Act of 1988 (CLIA '88). Some of these tests rely on the use of analyte specific reagents and are subject to specific labeling requirements by the US Food and Drug Administration. Such diagnostic tests may only be performed in a facility that is certified by the Department of Health and Human Services as a high complexity laboratory under CLIA '88. The FDA has determined that such clearance or approval is not necessary. This test is used for clinical purposes. It should not be regarded as investigational or for research. Nevertheless, federal rules concerning the medical use of analyte specific reagents require that the following disclaimer be attached to the report: This test was developed and its performance characteristics determined by the Surgical Pathology Department of [facility]. It has not been cleared or approved by the [place]. S. Food and Drug Administration. Angela Salgado MD LAB CYTOLOGY ORDERABLE S Final Result PATHOLOGY [facility] [address]rd Floor [place], [place] [phone] from Last 3 Months or Most Recently Relevant to Health Maintenance Insurance [facility] Member Subscriber Plan / Payer (Ef fective 2020-) Name:Divina Melton Relation to Subscriber:Self Name:Divina Melton Payer ID:[id number] (NAIC) Group ID:Not on file Type:MEDICAID RISK OTHER Address: ATTN: CLAIMS DEPT [address]
--- OUTSIDE RECORDS SUMMARY | 2024-08-02 10:37 | XMS_ITS ---
Author Organization [facility] Address [address] [place] [address] Care Team Providers Care Gym Teacher Name Role Phone Ottoniel Hernandez MD Unavailable [phone] Fariha Shin MD Unavailable [phone] Manuel Nevarez MD Primary Care Prov ider Edith Langley MD PhD Unavailable [phone] Active Problems Problem Noted Date Diagnosed Date [facility]CC (current) use of aromatase inhibitors 05/24/2024 RAD51C [...] cancer with RAD51 mutation - Consented for EUA, lsc BSO. Blood consent signed. For case scheduling. History of bilateral breast cancer 07/29/2021 Malignant neoplasm of overla pping sites of right breast in female, estrogen receptor positive 02/16/2021 Cancer Staging:Pathologic stage from 02/16/2021:Stage IB(pT3, pN1mi, cM0, G2, ER+, IA+, HER2-) - Signed by Jasmin Hollingsworth MD PhD on 02/16/2021 Abnormal mammography 11/22/2020 Malignant neoplasm of overla pping sites of left breast in female, estrogen receptor positive 12/27/2012 Cancer Staging:Pathologic: Unsigned Current Treatment and Therapy Plans Zoledronic Acid (ZOMETA) Infusion q 6 months* Plan Start Date:05/23/2022 Plan Provider:Fariha Shin MD Linked Problems Malignant neoplasm of overla pping sites of right breast in female, estrogen receptor positive (HCC) Treatment Medications No medications scheduled. Past Treatment and Therapy Plans Oncology Chemotherapy Treatment Plan Name Start Date Discontinue Date Treatment Medications Discontinue Reason Plan Provider Cycles Goserelin 28 Day Cycles - Breast 2 05/24/2024 goserelin (ZOLADEX) Provider Discretion Fariha Shin MD 37 of 46 cycles completed
--- OUTSIDE RECORDS SUMMARY | 2024-08-02 10:37 | XMS_ITS | Data Portability ---
Author Organization MYCHAL ANDREWJose Luis Address [address] [place] [address] Assessment No assessment recorded. Plan of Treatment Reminders Order Date Submit Date Provider Last Modified By Organization Details Last Modified Time Details Appointments None recorded . Lab vitamin B12 + folate, serum or blood 2021 022 [facility], [address], [place], [address], 2 17:09:04 CBC w/ auto diff 2021 022 [facility], 2022 Ce[address], [address], [place], [address], 2 17:09:03 vitamin D, 25-hydro xy, total, serum 2021 022 [facility], 2022 Ce[address], [address], [place], [address], 2 17:09:04 TSH + free T4, serum 2021 022 [facility], 2022 [address], [address], [place], [address], 2 17:09:03 thyroper oxidase Ab, serum 2021 022 [facility], 2022 Ce[address], [address], [place], [address], 2 17:09:05 Referral None recorded . Procedures None recorded . Surgeries None recorded . Imaging None recorded . Medication Orders losartan 100 mg tablet 2021 [facility] [address] [place], [address], 11:15:09 clobetas ol 0.05 % topical cream [address] [facility] [address] [place], [address], 13:22:10 losartan 50 mg tablet [address] [id number], [address] [facility], [place], [place], [id number], 11:14:15 clobetas ol 0.05 % topical cream 2021 [facility]1978, [address], [id number], 11:21:11 losartan 25 mg tablet [address] [id number], [address], [id number], 11:14:05 azithrom ycin 250 mg tablet 2021 022 [facility] #[id number], [address], [place], [place], [id number], 10:39:01 clobetas ol 0.05 % topical cream 2020 [facility] #[id number], [address], [place], [place], [id number], 1 10:10:32 Patient TargetsNo targets recorded. Patient Instructions Encounter Date Encounter Id Patient Instructions Last Modified By Organization Details Last Modified Time 02/11/2021 [id number] doing well , refuses an anti-depressant , has numbers for support groups , has friends and family too [email or web address] Not available 02/11/2021 22:31:24 10/28/2021 [id number] walk-in here in 7 days for a free BP check [email or web address] Not available 11/02/2021 10:41:20 Reason for Referral None Reported. Results Created Date Observation Date Name Description Value Unit Range Abnormal Flag Note LastModifiedBy Organization Detail LastModifiedTime 01/04/2001/03/2022 COLOG UARD cologuard result Cancel led - Order d not applic able Not Available [email or web address] (Cologuard Orders Only) [address], [place], [address], 01/03/2022 12:49:53 05/25/19 22 05/25/2021 TSH+F REE T4 TSH 3.180 uIU/m L 0.450- 4.500 Not Available [facility] ([facility]) [address] [place], [address], 05/27/2021 17:09:03 05/25/1905/25/2021 TSH+F REE T4 T4,free(dire ct) 1.13 NG/dL 0.82-1 .77 Not Available [facility] ([facility]) [address] [place], [address], 05/27/2021 17:09:03 05/25/19 22 05/25/2021 CBC WITH DIFFE RENTI AL/PL ATELE T WBC 4.2 x10e3 /uL 3.4-10 .8 Not Available [facility] ([facility]) [address] [facility], [place], [address], 05/27/2021 17:09:03 05/25/19 22 05/25/2021 CBC WITH DIFFE RENTI AL/PL ATELE T RBC 4.14 x10e6 /uL 3.77-5 .28 Not Available [facility] ([facility]) [address] [facility], [place], [address], 05/27/2021 17:09:03 05/25/19 22 05/25/2021 CBC WITH DIFFE RENTI AL/PL ATELE T hemoglobin 13.2 g/dL 11.1-1 5.9 Not Available [facility] ([facility]) [address] [facility], [place], [address], 05/27/2021 17:09:03 05/25/19 22 05/25/2021 CBC WITH DIFFE RENTI AL/PL ATELE T hematocrit 39.2 % 34.0-4 6.6 Not Available [facility] ([facility]) [address] [facility], [place], [address], 05/27/2021 17:09:03 05/25/19 22 05/25/2021 CBC WITH DIFFE RENTI AL/PL ATELE T MCV 95 fL 79-97 Not Available [facility] ([facility]) [address] [facility], [place], [address], 05/27/2021 17:09:03 05/25/19 22 05/25/2021 CBC WITH DIFFE RENTI AL/PL ATELE T MCH 31.9 pg 26.6-3 3.0 Not Available [facility] ([facility]) [address] [facility], [place], [address], 05/27/2021 17:09:03 05/25/19 22 05/25/2021 CBC WITH DIFFE RENTI AL/PL ATELE T MCHC 33.7 g/dL 31.5-3 5.7 Not Available [facility] ([facility]) [address] [facility], [place], [address], 05/27/2021 17:09:03 05/25/19 22 05/25/2021 CBC WITH DIFFE RENTI AL/PL ATELE T RDW 12.8 % 11.7-1 5.4 Not Available [facility] ([facility]) [address], [place], [address], 05/27/2021 17:09:03 05/25/19 22 05/25/2021 CBC WITH DIFFE RENTI AL/PL ATELE T platelets 300 x10e3 /uL 150-45 0 Not Available [facility] ([facility]) [address] [facility], [place], [address], 05/27/2021 17:09:03 05/25/19 22 05/25/2021 CBC WITH DIFFE RENTI AL/PL ATELE T neutrophils 66 % not estab. Not Available [facility] ([facility]) [address] [facility], [place], [address], 05/27/2021 17:09:03 05/25/19 22 05/25/2021 CBC WITH DIFFE RENTI AL/PL ATELE T lymphs 14 % not estab. Not Available [facility] ([facility]) [address] [facility], [place], [address], 05/27/2021 17:09:03 05/25/19 22 05/25/2021 CBC WITH DIFFE RENTI AL/PL ATELE T monocytes 17 % not estab. Not Available [facility] ([facility]) [address] [facility], [place], [address], 05/27/2021 17:09:03 05/25/19 22 05/25/2021 CBC WITH DIFFE RENTI AL/PL ATELE T eos 2 % not estab. Not Available [facility] ([facility]) [address] [facility], [place], [address], 05/27/2021 17:09:03 05/25/19 22 05/25/2021 CBC WITH DIFFE RENTI AL/PL ATELE T basos 1 % not estab. Not Available [facility] ([facility]) [address] [facility], [place], [address], 05/27/2021 17:09:03 05/25/19 22 05/25/2021 CBC WITH DIFFE RENTI AL/PL ATELE T immature cells FOAM DISPENSER Not Available [facility] ([facility]) [address] [place], [address], 05/27/2021 17:09:03 05/25/19 22 05/25/2021 CBC WITH DIFFE RENTI AL/PL ATELE T neutrophils (absolute) 2.8 x10e3 /uL 1.4-7. 0 Not Available [facility] ([facility]) [address] [place], [address], 05/27/2021 17:09:03 05/25/19 22 05/25/2021 CBC WITH DIFFE RENTI AL/PL ATELE T lymphs (absolute) 0.6 x10e3 /uL 0.7-3. 1 below low normal Not Available [facility] ([facility]) [address] [place], [address], 05/27/2021 17:09:03 05/25/19 22 05/25/2021 CBC WITH DIFFE RENTI AL/PL ATELE T monocytes(ab solute) 0.7 x10e3 /uL 0.1-0. 9 Not Available [facility] ([facility]) [address] [place], [address], 05/27/2021 17:09:03 05/25/19 22 05/25/2021 CBC WITH DIFFE RENTI AL/PL ATELE T eos (absolute) 0.1 x10e3 /uL 0.0-0. 4 Not Available [facility] ([facility]) [address] [place], [address], 05/27/2021 17:09:03 05/25/19 22 05/25/2021 CBC WITH DIFFE RENTI AL/PL ATELE T baso (absolute) 0.0 x10e3 /uL 0.0-0. 2 Not Available [facility] ([facility]) [address] [facility] [place], [address], 05/27/2021 17:09:03 05/25/19 22 05/25/2021 CBC WITH DIFFE RENTI AL/PL ATELE T immature granulocytes 0 % not estab. Not Available [facility] ([facility]) [address] [facility], [place], [address], 05/27/2021 17:09:03 05/25/19 22 05/25/2021 CBC WITH DIFFE RENTI AL/PL ATELE T immature grans (abs) 0.0 x10e3 /uL 0.0-0. 1 Not Available [facility] ([facility]) [address] [facility], [place], [address], 05/27/2021 17:09:03 05/25/19 22 05/25/2021 CBC WITH DIFFE RENTI AL/PL ATELE T NRBC FOAM DISPENSER Not Available [facility] ([facility]) [address] [facility], [place], [address], 05/27/2021 17:09:03 05/25/19 22 05/25/2021 CBC WITH DIFFE RENTI AL/PL ATELE T hematology comments: FOAM DISPENSER Not Available [facility] ([facility]) [address] [facility], [place], [address], 05/27/2021 17:09:03 05/25/19 22 05/25/2021 VITAM IN B12 AND FOLAT E vitamin B12 >2000 pg/mL 232-12 45 above high normal Not Available [facility] ([facility]) [address] [facility], [place], [address], 05/27/2021 17:09:04 05/25/19 22 05/25/2021 VITAM IN B12 AND FOLAT E folate (folic acid), serum 16.5 NG/mL >3.0 A serum folat e lambert ntrat ion of less than 3.1 ng/mL is consi dered to repre sent clini ghassan defic iency . Not Available [facility] ([facility]) [address] [facility], [place], [address], 05/27/2021 17:09:04 05/25/19 22 05/25/2021 VITAM IN D, 25-HY DROXY vitamin D, 25-hydroxy 62.0 NG/mL 30.0-1 00.0 Vitam in D defic iency has been defin ed by the Insti tute of Medic ine and an Endoc rine Socie ty pract ice guide line as a level of serum 25-OH vitam in D less than 20 ng/mL (1,2) . The Endoc rine Socie ty went on to fur er defin e vitam in D insuf ficie ncy as a level betwe en 21 and 29 ng/mL (2). 1. IOM (Inst itute of Medic ine). 2010. Rangel ry refer ence intak es for calci um and D. Osiris coffey [place]: The [facility] . 2. Navneet velasquez [place], Jaclyn lucero [place], Linda off-F cinthia i CASTILLO, et al. Evalu ation , treat ment, and preve ntion of vitam in D defic iency : an Endoc rine Socie ty clini ghassan pract ice guide line. JCEM. 2010; 96(7) :1911 -30. Not Available [facility] ([facility]) [address] [facility], [place], [address], 05/27/2021 17:09:04 05/25/19 22 05/25/2021 THYRO ID ANTIB ODIES thyroid peroxidase (tpo) Ab 272 IU/mL 0-34 above high normal Not Available [facility] ([facility]) [address] [facility], [place], [address], 05/27/2021 17:09:05 05/25/19 22 05/27/2021 THYRO ID ANTIB ODIES thyroglobuli n antibody <1.0 IU/mL 0.0-0. 9 Thyro globu luis Antib wilfredo measu red by [place] an [place] Metho dolog y Not Available [facility] ([facility]) [address], [place], [address], 05/27/2021 17:09:05 03/31/19 22 03/29/2021 US, axill a No observ ation record ed. [facility] [address], [place], [address], 06/19/2021 14:17:10 03/31/19 22 03/29/2021 US, axill a No observ ation record ed. [facility] [address], [place], [address], 06/19/2021 14:17:37 04/11/19 22 04/11/2021 aspir ation /biop sy, ultra sound guide d (PROC ) No observ ation record ed. [email or web address], [place], [address], 05/18/2021 12:53:46 02/26/20 22 02/24/2022 US, thyro id No observ ation record ed. [place] [id number], [place], [address], 02/25/2022 17:11:05 03/12/20 22 02/24/2022 US, thyro id No observ ation record ed. [facility] [address], [place], [address], 03/26/2022 11:46:28 Result Notes None recorded. Problems Name Problem SNOMED Code Status Onset Date Resolution Date Notes Provider Name and Address Organization Details Recorded Time Female sterilizatio n Active 2009 Not Available [facility] 08:07:53 Osteoarthrit is 826830127 Active 2019 Not Available [facility] 08:07:52 Atopic dermatitis 89852128 Active 2019 Not Available [facility] 08:07:53 Chronic constipation 688977218 Active 2020 Not Available [facility] 1 08:07:53 Family history of diabetes mellitus 855420684 Active 2020 Not Available [facility] 1 08:07:52 At increased risk of nutritional deficit 192694213 Active 2020 Not Available [facility] 1 08:07:52 Serum vitamin B12 borderline low 351548319 Active 2020 Not Available [facility] 1 08:07:53 Vitamin D below reference range 919805740 Active 2020 Not Available [facility] 1 08:07:52 Hypothyroidi sm 73235249 Active 2020 Not Available [facility] 1 08:07:53 Mammography assessment (Category 4) - Suspicious abnormality, biopsy should be considered 616451042 Active 2020 Not Available [facility] 1 08:07:53 Nodule of skin of breast 896313513 Active 2020 Saul Allen PA-C Attn: Accounting ,[address] [place], [address] , [place] [facility] 1 22:34:53 Adenocarcino ma of breast 171187418 Active 2021 Saul Allen PA-C Attn: Accounting ,[address] [place], [address] , [place] [facility] 2 21:19:38 Acute sinusitis 54727038 Active 2021 Saul Allen PA-C Attn: Accounting ,[address] [place], [address] , [place] [facility] 2 12:10:20 Increased blood pressure 00863596 Active 2021 Saul Allen PA-C Attn: Accounting ,[address] [place], [address] , [place] [facility] 2 10:56:17 Essential hypertension 09443110 Active 2021 Saul Allen PA-C Attn: Accounting ,[address], [place], [address] , [place] [facility] 2 11:19:57 Constipation 75357220 Active Not Available [facility] 1 08:07:53 Neoplasm of breast 656281165 Active left breast Not Available [facility] 1 08:07:53 Notes:Breast cancer 2013: mikaela mpectomy o chemo , just radiation . 8 years free Problem Notes None recorded. Procedures Surgical History Date Name Laterality Status Provider Name and Address Organization Details Recorded Time 1 Date of Last Pap Smear completed Lakisha Crane MA [facility] 01/03/2021 16:04:49 1 Most Recent Mammogram completed Lakisha Crane MA [facility] 01/03/2021 16:05:35 3 Breast Surgery completed Alisa Olguin MA [facility] 01/22/2015 11:06:18 0 Tubal Ligation completed Alisa Olguin MA [facility] 01/22/2015 11:06:31 Imaging Results Imaging Date Name Status LastModified by Organiz ation Details LastModified Time 03/29/2021 US, axilla completed [facility] [address] [place] [address], [address], 06/19/2021 14:17:10 03/29/2021 US, axilla completed [facility] [address] [place] [address], [address], 06/19/2021 14:17:37 04/11/2021 aspiration/biop sy, ultrasound guided (PROC) completed [address] [place] [address], [address], 05/18/2021 12:53:46 02/24/2022 US, thyroid completed [address] [place] [address], [address], 02/25/2022 17:11:05 02/24/2022 US, thyroid completed [address], [place], [address], 03/26/2022 11:46:28 Procedure Notes None recorded. Medical Equipment None Reported. Allergies Allergen ID Allergen Name Allergen Category Reaction Reaction Severity Criticality Documentation Date Start Date Code Code System Note Provider Name and Address Organization Details Recorded Time 72892 Substance with sulfonami de structure and antibacte rial mechanism of action (substanc e) medicatio n vomiting severe Not available 01/22/2015 82318 8003 SNOMED Alisa OlguinELADIO null, [place] - [facility] 5 11:00:49 Medications Name Sig Start Date Stop Date Status Note LastModified by Organization Details LastModified Time multivita min tablet TAKE 1 TABLET BY MOUTH EVERY DAY active Not Available Not Available No t Available losartan 50 mg tablet TAKE 1 TABLET BY MOUTH EVERY DAY IN THE MORNING 01/10 completed increase d Not Available Not Available Not Available cyclobenz aprine 10 mg tablet 04/20 completed Not Available Not Available Not Available Miralax 17 gram/dose oral powder Take 17 g every day by oral route. 04/20 completed Not Available Not Available Not Available anastrozo le 1 mg tablet active Not Available Not Available Not Available azithromy corina 250 mg tablet TAKE 2 TABLETS (500 MG) BY ORAL ROUTE ONCE DAILY FOR 1 DAY THEN 1 TABLET (250 MG) BY ORAL ROUTE ONCE DAILY FOR 4 DAYS 08/26 completed Not Available Not Available Not Available ondansetr on HCl 8 mg tablet 04/20 completed Not Available Not Available Not Available clobetaso l 0.05 % topical cream APPLY A THIN LAYER TO THEAFFEC CHAYITO AREAS TWICE DAILY active Not Available Not Available No t Available cyanocoba davon (vit B-12) 1,000 mcg tablet TAKE 1 TABLET BY MOUTH TWICE DAILY WITH MEALS active Not Available Not Available No t Available ketorolac 10 mg tablet active Not Available Not Available Not Available Euthyrox 25 mcg tablet TAKE 2 TABLETS ON THURSDAY/ ED /THURSDAY AND ONE TABLET ON /Thu// FOR 90 DAYS active Not Available Not Available No t Available amoxicill in 875 mg tablet 03/03 completed Not Available Not Available Not Available prednisol one acetate 1 % eye drops,donna pension 04/20 completed Not Available Not Available Not Available methocarb zeenat 750 mg tablet TAKE 1 TABLET BY MOUTH FOUR TIMES DAILY NEEDED FOR SPASMS active Not Available Not Available No t Available levothyro xine 50 mcg tablet TAKE 1 TABLET BY MOUTH EVERY DAY IN THE MORNING 08/26 completed Not Available Not Available Not Available triamcino lone acetonide 0.1 % topical ointment APPLY A THIN LAYER TO THE AFFECTED AREA(S) BY TOPICAL ROUTE 2 TIMES PER DAY-hand s 09/21 completed Not Available Not Available Not Available losartan 25 mg tablet TAKE 1 TABLET EVERY DAY BY MOUTH IN THE MORNING FOR 30 DAYS 01/10 completed increase d Not Available Not Available Not Available docusate sodium 100 mg capsule TAKE 1 CAPSULE BY MOUTH TWICE DAILY active Not Available Not Available No t Available diclofena c sodium 75 mg tablet,de layed release TK 1 T PO BID PRN 09/21 completed Not Available Not Available Not Available ibuprofen 600 mg tablet TAKE 1 TABLET BY MOUTH EVERY 6 HOURS NEEDED FOR PAIN active Not Available Not Available No t Available betametha sone dipropion ate 0.05 % topical ointment APPLY THIN LAYER TOPICALL Y TO THE AFFECTED AREA EVERY DAY 05/24 completed Not Available Not Available Not Available losartan 100 mg tablet Take 1 tablet every day by oral route in the morning for 30 days. active Not Available Not Available No t Available naproxen 500 mg tablet 04/20 completed Not Available Not Available Not Available mometason e 0.1 % topical cream active Not Available Not Available Not Available lactulose 10 gram/15 mL oral solution TAKE 15 ML BY MOUTH DAILY 09/21 completed Not Available Not Available Not Available goserelin active Not Available Not Ami ilable Not Available cholecalc iferol (vitamin D3) 1,250 mcg (50,000 unit) capsule TAKE 1 CAPSULE BY MOUTH EVERY WEEK BEFORE A MEAL active Not Available Not Available No t Available Calcium with Vitamin D 600 mg-10 mcg (400 unit) tablet Take 1 tablet twice a day by oral route. 2020 active Not Available Not Available Not Avai lable lactulose 10 gram/15 mL (15 mL) oral solution Take 15 mL every day by oral route. 03/03 completed Not Available Not Available Not Available Linzess 145 mcg capsule Take 1 capsule every day by oral route. 02/25 completed Not Available Not Available Not Available BinaxNOW COVID-19 Ag Self Test kit active Not Available Not Available Not Available Vitals Date Recorded Body height Body mass index (BMI) Body weight Oxygen saturation Oxygen saturation in Arterial blood by Pulse oximetry Heart rate Body temperature Systolic blood pressure Diastolic blood pressure Provider Name and Address Organization Details Last Updated DateTime 1 162.56 cm 29 kg/m2 82534.5 4 g 97 % 97 % 116 /min 98.1 [degF] 124 mm[Hg] 72 mm[Hg] Diane Horne [facility] 1 09:59:52 Date Recorded Body height Body mass index (BMI) Body weight Oxygen saturation Oxygen saturation in Arterial blood by Pulse oximetry Heart rate Systolic blood pressure Diastolic blood pressure Provider Name and Address Organization Details Last Updated DateTime 2 162.56 cm 29 kg/m2 11905.1 1 g 98 % 98 % 111 /min 142 mm[Hg] 78 mm[Hg] Diane Horne [facility] 2 12:01:58 Date Recorded Body height Body mass index (BMI) Body weight Oxygen saturation Oxygen saturation in Arterial blood by Pulse oximetry Heart rate Systolic blood pressure Diastolic blood pressure Provider Name and Address Organization Details Last Updated DateTime 2 162.56 cm 28 kg/m2 01486.9 9 g 98 % 98 % 83 /min 140 mm[Hg] 86 mm[Hg] Diane Horne [facility] 2 10:47:45 Date Recorded Body height Body mass index (BMI) Body weight Oxygen saturation Oxygen saturation in Arterial blood by Pulse oximetry Heart rate Systolic blood pressure Diastolic blood pressure Provider Name and Address Organization Details Last Updated DateTime 2 162.56 cm 28.5 kg/m2 32812.3 3 g 97 % 97 % 94 /min 152 mm[Hg] 94 mm[Hg] Diane Horne [facility] 2 11:09:57 Date Recorded Body height Body mass index (BMI) Body weight Oxygen saturation Oxygen saturation in Arterial blood by Pulse oximetry Heart rate Systolic blood pressure Diastolic blood pressure Provider Name and Address Organization Details Last Updated DateTime 2 162.56 cm 28 kg/m2 81811.9 9 g 98 % 98 % 89 /min 140 mm[Hg] 88 mm[Hg] Diane Horne [place] [facility] 2 10:56:46 Social History Question Answer Notes LastModified by Organizat ion Details LastModified Time Tobacco Smoking Status Former Smoker vape Tracy Retana MA [facility], [place] - [facility] 02/25/2017 11:07:54 Do You Have An Advance Directive? No Information not available 01/22/2015 Is Blood Transfusion Acceptable In An Emergency? Yes Information not available 01/22/2015 What Is Your Level Of Caffeine Consumption? Moderate Information not available 01/22/2015 How Much Tobacco Do You Chew? None Information not available 01/22/2015 What Type Of Diet Are You Following? REGULAR Information not available 01/22/2015 Which Illicit Or Recreational Drugs Have You Used? None Information not available 01/22/2015 Education 9 Information no t available 01/22/2015 What Is The Highest Grade Or Level Of School You Have Completed Or The Highest Degree You Have Received? [id number] Information not available 01/03/2021 Live Alone Or With Others? With Others Information not available 01/22/2015 What Was The Date Of Your Most Recent Tobacco Screening? 01/10/2022 Information not available 01/10/2022 How Many Children Do You Have? 1 Information not available 01/22/2015 Performs Monthly Self-breast Exam? Yes Information no t available 01/22/2015 Do You Use Protection During Sex? No Information not available 01/22/2015 What Is Your Relationship Status? Information not available 01/22/2015 Do You Use Your Seat Belt Or Car Seat Routinely? Yes Information not available 01/03/2021 Seat Belts Used Routinely Yes Information not available 01/22/2015 Are You Sexually Active? Yes Information not available 01/22/2015 Do You Have Smoke And Carbon Monoxide Detectors In Your Home? Yes Information not available 01/03/2021 At What Age Did You Start Smoking Tobacco? 13 Information not available 01/22/2015 Are You Passively Exposed To Smoke? Yes Information no t available 01/03/2021 How Much Tobacco Do You Smoke? No Information not available 10/29/2020 General Stress Level Medium Information not available 01/22/2015 Do You Use Sunscreen Routinely? Yes Information not available 01/22/2015 Has Tobacco Cessation Counseling Been Provided? Yes Information not available 01/03/2021 On What Date Was Tobacco Cessation Counseling Provided? 01/10/2022 Information not available 01/10/2022 How Many Years Have You Smoked Tobacco? 25 Information not available 01/22/2015 How Many Years Have You Used E-cigarettes Or Vape? 9 Information not available 01/03/2021 Sex: Unknown Functional Status Question Answer Note LastModified by Organizat ion Details LastModified Time Do you use any illicit or recreational drugs? No Information not available 01/03/2021 Do you or have you ever used any other forms of tobacco or nicotine? Yes pt states vaping Information not available 01/03/2021 What is your level of alcohol consumption? None Information not available 01/22/2015 Do you or have you ever used smokeless tobacco? Never used smokeless tobacco [facility] Information not available 04/20/2019 Are you currently employed? No Information not available 01/03/2021 Do you or have you ever used e-cigarettes or vape? Current user of electronic cigarettes [facility] Information not available 04/20/2019 What is your exercise level? Moderate Information not available 01/22/2015 Mental Sta [id number]|2024-08-02 10:37:00|2024-08-02 10:36:00|XMS_ITS|VICTORIANO JACINTO|External Medical Summaries|[id number]|" Clinical Summary Created on: August 02, 2024 Sunni Melton : 1970 Sex: Female Author Organization [facility] Address [facility] [place] [address] Care Team Providers Care Interlocker Maintainer Name Role Phone Unavailable Primary Care Provider Unavailabl e Social History Tobacco Use Types Packs/Day Years Used Date Smoking Tobacco: Never Assessed Comments Unknown Sex and Gender Information Value Date Recorded Sex Assigned at Not on file Legal Sex Female 7:32 AM CDT Gender Identity Not on file Sexual Orientation Not on file Plan of Treatment Health Maintenance Due Date Last Done Comments Cervical Cancer Screening Pa p Smear (Age 30 to 64) Every 3 Years 1972 Colorectal Cancer Screening Colonoscopy (10 Years) 1972 Annual Physical 09/26/1975 Hepatitis C 1990 DTaP, Tdap and Td Vaccines ( 1 - Tdap) 09/26/1991 Hepatitis B Vaccines (1 of 3 - 19+ 3-dose series) 09/26/1991 Cervical Cancer Screening Pa p with HPV Testing (Age 30 to 64) Every 5 Years 2002 Cervical Cancer Screening with HPV 2002 Mammogram Screening 2012 Pneumococcal Vaccine: 50+ Ye ars (1 of 1 - PCV) 2022 Zoster Vaccines (1 of 2) 2022 COVID-19 Vaccine ( - 2023-2 5 season) 2023 Meningococcal B Vaccine Aged Out No l onger eligible based on patient's age to complete this topic Meningococcal Vaccine Aged Out No sherly carlos eligible based on patient's age to complete this topic RSV Immunizations Under 20 Months Aged Out No longer eligible based on patient's age to complete this topic "
--- OUTSIDE RECORDS SUMMARY | 2024-08-02 10:37 | XMS_ITS | Encounter Summary ---
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 Gender Identity Not on file Sexual Orientation Not on file documented as of this encounter Plan of Treatment Not on file documented as of this encounter Procedures Procedure Name Priority Date/Time Associated Diagnosis Comments SCAN - LABS 01/08/2024 documented in this encounter Results * SCAN - LABS (01/08/2024) us Provider Scanning Edited Result - Final documented in this encounter Visit Diagnoses Not on filedocumented in this encounter Care Teams Thermometer Tester Relationship Specialty Start Date End Date Manuel Nevarez MD [address] [place] [address] PCP - General Family Medicine 03/28/22 Ottoniel Hernandez MD Referring Physician Obstetrics and Gynecology 11/07/20 Fariha Shin MD [address] [facility] [address] [place] [address] Medical Oncologist/Talent Development Manager Medical Oncology 07/29/21 Edith Langley MD PhD [address] [facility] [address] [place] [address] Consulting Physician Medical Oncology 02/24/24 documented as of this encounter
[2024-08-02 11:23] LABS: Alanine Aminotransferase 36 U/L (6-35); Albumin Level 4.6 g/dL (3.5-5.1); Alkaline Phosphatase 58 U/L (38-126); Anion Gap 8 mmol/L (4-12); Aspartate Amino Transferase 33 U/L (14-36); Bilirubin,Total 0.3 mg/dL (0.2-1.3); Blood Urea Nitrogen 20 mg/dL (7-17); Calcium 9.3 mg/dL (8.4-10.2); Carbon Dioxide 28 mmol/L (22-30); Chloride 105 mmol/L (98-107); Cholesterol 135 mg/dL (0-200); Estimated Glomerular Filt Rate > 60; Glucose 97 mg/dL (65-110); HDL Direct 63 mg/dL; Potassium 4.5 mmol/L (3.4-5.0); Sodium 141 mmol/L (137-145); Triglycerides 56 mg/dL (<150)
[2024-08-02 11:34] LABS: LDL Cholesterol Direct 51 mg/dL
[2024-08-02 11:53] LABS: Thyroid Stimulating Hormone 0.366 uIU/mL (0.465-4.680)
== END 2024-08-02 10:20 | disposition home or self-care (01) ==
LOC: ANHLAB 10:21
PROVIDERS: PCP Family Medicine Adolescent Medicine; Visit Provider Family Medicine Adolescent Medicine
DX: E78.00 Pure hypercholesterolemia, unspecified (principal); I10 Essential (primary) hypertension; E03.9 Hypothyroidism, unspecified
CPT/HCPCS: 36415; 80053; 80061; 84443